=== PATIENT | female | born 1950 | race Caucasian/White ===

== ENCOUNTER 2017-11-13 09:38 | Emergency (ER) | payer MEDICARE, OTHER, SELFPAY ==
[2017-11-13 09:51] VITALS: BP 107/63; PULSE 61; RESP 16; TEMP 37; O2SAT 100; BMI 30.2
--- NOTE | 2017-11-13 10:20 | DI.US.S_ITS ---
PROCEDURE: US PERIPH VENOUS LOW EXTREM LT INDICATIONS: pain swelling hx of dvt TECHNIQUE: Real-time imaging, as well as color and pulse Doppler interrogation, were performed of the lower extremity deep veins from the inguinal ligament to the popliteal fossa. COMPARISON: None. FINDINGS: The deep veins are normally compressible, and free of intraluminal thrombus. Color and pulse Doppler demonstrate normal phasic intraluminal flow. There is normal augmentation response to distal compression maneuver. IMPRESSION: No evidence of left lower extremity deep vein thrombosis. Dictated by: Rosendo Hilliard M.D. on 11/13/2017 at 10:28 Approved by: Rosendo Hilliard M.D. on 11/13/2017 at 10:28
--- NOTE | 2017-11-13 10:26 | ED.EXTPRO ---
HPI - Extremity Problem General Chief complaint: Extremity Problem,Nontraumatic Stated complaint: PAIN ABOUT LEFT KNEECAP,LEFT LEG LARGER THAN RIGHT Time Seen by Provider: 11/13/17 09:51 Source: patient Mode of arrival: ambulatory Limitations: no limitations History of Present Illness HPI Narrative: Patient is a 67-year-old female who presents with left leg pain. She has a history of a DVT after a foot fracture. The last 3 days she has noticed some pain mostly in her 5 but she has had some numbness in her ankle. The numbness in her ankles what she had before. Previously her calf was swollen twice as large it is not as big now. She has no erythema no fevers no chest pain no shortness of breath. She has not been traveling or immobile, she is fairly active. MD Complaint: extremity pain Related Data Home Medications Medication Instructions Recorded Confirmed albuterol sulfate [ProAir HFA] 1 puff INHALATION PRN PRN 11/13/17 11/13/17 celecoxib 1 cap PO BID 11/13/17 11/13/17 escitalopram oxalate 20 mg PO DAILY 11/13/17 11/13/17 olmesartan 10 mg PO BID 11/13/17 11/13/17 omeprazole 40 mg PO DAILY 11/13/17 11/13/17 oxycodone 1 tab PO QID 11/13/17 11/13/17 pitavastatin calcium [Livalo] 4 mg PO DAILY 11/13/17 11/13/17 promethazine 25 mg PO AC 11/13/17 11/13/17 tizanidine 1 cap PO DIRECTED 11/13/17 11/13/17 trazodone 2 tab PO BEDTIME 11/13/17 11/13/17 Allergies Allergy/AdvReac Type Severity Reaction Status Date / Time iodine Allergy Verified 11/13/17 10:34 Penicillins Allergy Verified 11/13/17 10:34 Sulfa (Sulfonamide Allergy Verified 11/13/17 10:34 Antibiotics) Review of Systems Review of Systems All systems reviewed & are unremarkable except as noted in HPI and below Constitutional Denies chills, Denies fever(s), Denies lethargy and Denies weakness Cardiovascular Denies chest pain, Denies irregular heart rhythm, Denies lightheadedness, Denies palpitations and Denies orthopnea Gastrointestinal Gastrointestinal: Denies abdominal pain, Denies change in bowel habits, Denies diarrhea, Denies nausea and Denies vomiting Musculoskeletal Denies abnormal gait, Denies deformity, Denies arthralgias and Reports numbness (Left ankle intermittent) Integumentary/Breasts Denies pruritus, Denies erythema, Denies rash and Denies wounds Neurologic Denies abnormal gait, Reports numbness (Left ankle intermittent) and Denies weakness Endocrine Denies palpitations PFSH Medical History DVT (deep venous thrombosis) (Acute) Social History Smoking Status: Never smoker Exam Initial Vital Signs Initial Vital Signs: Vital Signs Temperature 98.6 F 11/13/17 09:51 Pulse Rate 61 11/13/17 09:51 Respiratory Rate 16 11/13/17 09:51 Blood Pressure 107/63 11/13/17 09:51 Pulse Oximetry 100 11/13/17 09:51 Const General: cooperative and well developed Nutritional Appearance: well nourished Orientation: alert, awake, oriented x3 and not confused Resp Effort & Inspection: normal respiratory effort, able to speak in complete sentences, no respiratory distress and no use of accessory muscles Auscultation: clear to auscultation bilaterally, no rales, no rhonchi and no wheezes Cardio Rate: regular rate Rhythm: regular rhythm Heart Sounds: no click, no gallops, no murmurs and no rubs Pulses: normal peripheral pulses Skin General: no rashes or lesions noted, No jaundice and No petechiae Extrem Right lower extremity: normal to inspection, full ROM and normal capillary refill Left lower extremity: normal to inspection, full ROM and normal capillary refill Course Orders Ordered: ED Orders 11/13/17 10:20 [address] [facility] venous low extrem lt Stat Vital Signs - 8 hr 11/13/17 09:51 11/13/17 11:19 Temperature 98.6 F Pulse Rate 61 63 Respiratory Rate 16 16 Blood Pressure 107/63 Blood Pressure [Left Arm] 124/63 H Pulse Oximetry 100 100 MDM - Extremity (Nontraumatic) Imaging Data Venous US: Radiologist's impression: PROCEDURE: US PERIP VENOUS LOW EXTREM LT INDICATIONS: pain swelling hx of dvt TECHNIQUE: Real-time imaging, as well as color and pulse Doppler interrogation, were performed of the lower extremity deep veins from the inguinal ligament to the popliteal fossa. COMPARISON: None. FINDINGS: The deep veins are normally compressible, and free of intraluminal thrombus. Color and pulse Doppler demonstrate normal phasic intraluminal flow. There is normal augmentation response to distal compression maneuver. IMPRESSION: No evidence of left lower extremity deep vein thrombosis. Dictated by: Rosendo Hilliard M.D. on 11/13/2017 at 10:28 Discharge Plan Departure Patient Disposition: Home, Self-Care Clinical Impression: Left leg pain Instructions: DI for Leg Pain Activity Restrictions/Additional Instructions: *You have been diagnosed with left leg pain *What to do: No blood clot at this time *Continue to take medications as directed *Follow up with your primary care provider in 2-3 days *Return to ER if you should have increased pain, increased or any new, worsening or concerning symptoms Prescriptions: No Action celecoxib 200 mg capsule 1 cap PO BID RF: 0 omeprazole 40 mg capsule,delayed release(DR/EC) 40 mg PO DAILY RF: 0 promethazine 25 mg tablet 25 mg PO AC RF: 0 albuterol sulfate [ProAir HFA] 90 mcg/actuation HFA aerosol inhaler 1 puff Inhalation PRN PRN (Reason: Shortness Of Breath) RF: 0 oxycodone 5 mg tablet 1 tab PO QID RF: 0 escitalopram oxalate 20 mg tablet 20 mg PO DAILY RF: 0 tizanidine 2 mg capsule 1 cap PO DIRECTED RF: 0 pitavastatin calcium [Livalo] 4 mg tablet 4 mg PO DAILY RF: 0 trazodone 50 mg tablet 2 tab PO BEDTIME RF: 0 olmesartan 5 mg tablet 10 mg PO BID RF: 0 Referrals: Cass Lebron [Primary Care Provider] -
[2017-11-13 11:19] VITALS: BP 124/63; PULSE 63; RESP 16; O2SAT 100
== END 2017-11-13 11:40 | disposition home or self-care (01) ==
PROVIDERS: Emergency Provider Emergency Medicine; PCP Internal Medicine
DX: M79.605 Pain in left leg (principal)
CPT/HCPCS: 93971; 99282; 99284

== ENCOUNTER 2018-06-18 17:08 | Emergency (ER) | payer MEDICARE, OTHER, SELFPAY ==
[2018-06-18] VITALS (10 sets, daily range): BP systolic 90–120; BP diastolic 7–83; PULSE 51–87; RESP 10–21; TEMP 36.4; O2SAT 86–100; BMI 25.2
--- NOTE | 2018-06-18 17:26 | DI.RAD.S_ITS ---
PROCEDURE: XR KNEE RT 1TO2V INDICATIONS: fall TECHNIQUE: 2 view(s) of the knee acquired. COMPARISON: None. FINDINGS: Bones: Patient is status post knee joint arthroplasty. There is a markedly angulated and moderately displaced comminuted fracture of the distal femur just superior to the arthroplasty hardware. Soft tissues: Overlying postoperative changes are noted. IMPRESSION: Periprosthetic distal femoral fracture. Dictated by: Peter Flores M.D. on 06/18/2018 at 18:43 Approved by: Peter Flores M.D. on 06/18/2018 at 18:44
[2018-06-18 17:49] LABS: Add Manual Diff / Slide Review NO; Basophils Absolute Auto 0 /uL (0-100); Basophils Percent Auto 0.7 % (0-2); Eosinophils Absolute Auto 200 /uL (0-450); Eosinophils Percent Auto 5.4 % (2-4); Hematocrit 31.9 % (36-46); Hemoglobin 10.5 g/dL (12.0-16.0); Lymphocytes Absolute Auto 1200 /uL (1100-4500); Lymphocytes Percent Auto 26.2 % (25-40); Mean Corpuscular HGB Conc 32.9 % (30-36); Mean Corpuscular Hemoglobin 30.5 PG (26-34); Mean Corpuscular Volume 92.7 fL (80-100); Monocytes Absolute Auto 300 /uL (0-900); Monocytes Percent Auto 6.8 % (3-14); Neutrophils Absolute Auto 2800 /uL (1500-7000); Neutrophils Percent Auto 60.9 % (50-75); Platelet Count 145 X10^3/uL (150-400); Red Blood Cell Count 3.44 X10^6/uL (4.0-5.2); Red Cell Distribution Width 13.5 % (11.6-14.8); White Blood Cell Count 4.6 X10^3/uL (4.5-11.0)
[2018-06-18 18:02] LABS: Alanine Aminotransferase 48 IU/L (9-52); Albumin 3.8 g/dL (3.5-5.0); Albumin Globulin Ratio 1.7 (1.0-2.8); Alkaline Phosphatase 69 U/L (38-126); Aspartate Aminotransferase 47 IU/L (14-36); BUN Creatinine Ratio 18.7 (6-22); Bilirubin Total 0.4 mg/dL (0.2-1.3); Blood Urea Nitrogen 28 mg/dL (7-17); Calcium 9.2 mg/dL (8.4-10.2); Carbon Dioxide 30 mmol/L (22-32); Chloride 101 mmol/L (98-107); Creatine Kinase 66 U/L (30-135); Estimated Glomerular Filt Rate 34.6 mL/min (>60); Globulin 2.3 g/dL (1.7-4.1); Glucose 71 mg/dL (80-110); HEMOLYSIS < 15 (0-50); Potassium 4.2 mmol/L (3.4-5.1); Sodium 138 mmol/L (137-145); Total Protein 6.1 g/dL (6.3-8.2)
[2018-06-18] MEDS: HYDROMORPHONE 1 MG INJ IV ×6 (18:09→23:46)
[2018-06-18] MEDS: ONDANSETRON 4 MG/2 ML INJ IV (18:10)
[2018-06-18] MEDS: SODIUM CHLORIDE 0.9% 1,000 ML 1000 ML IV ×2 (18:10→20:08)
[2018-06-18 18:14] LABS: Troponin I < 0.012 ng/mL (0.01-0.034)
--- NOTE | 2018-06-18 18:41 | ED.SYNCOPE ---
HPI - Syncope General Chief Complaint: Syncope Stated Complaint: hypoglycemia w/ fall and R knee pain Time Seen by Provider: 06/18/18 18:13 Source: patient and EMS Mode of arrival: EMS Limitations: no limitations History of Present Illness HPI narrative: 68-year-old female, nonsmoker with history of frequent episodes of hypoglycemia which has been followed by her PCP. She became lightheaded and likely had a syncopal episode today and fell, injuring her right knee. She attempted to ambulate again and had another syncopal episode, presumably secondary to the pain associated with her fracture. She was able to get herself to a phone and activate EMS. She denies any head, neck or back pain as a consequence of her episode. She denies any chest pain or shortness of breath. She states that her blood glucose was about 50. She suffered an obvious right lower extremity injury with deformity but denies numbness, weakness or tingling. She had a right total knee in [place] in 2002 at [facility] does not have local care. She states she is normally slightly anemic and as stated frequently has low blood sugars. She denies any recent illness such as nausea, vomiting or diarrhea. She denies any blood thinners. She has had no recent medication changes. MD complaint: loss of consciousness and felt faint Onset (ago): hour(s) Prodromal symptoms: lightheaded Witnessed: no Current symptoms: other Treatments prior to arrival: IV fluids and splinting Related Data Home Medications Medication Instructions Recorded Confirmed albuterol sulfate [ProAir HFA] 1 puff INHALATION PRN PRN 11/13/17 06/19/18 celecoxib 1 cap PO BID 11/13/17 06/19/18 escitalopram oxalate 20 mg PO DAILY 11/13/17 06/19/18 olmesartan 10 mg PO BID 11/13/17 06/19/18 omeprazole 40 mg PO DAILY 11/13/17 06/19/18 oxycodone 1 tab PO QID 11/13/17 06/19/18 pitavastatin calcium [Livalo] 4 mg PO DAILY 11/13/17 06/19/18 promethazine 25 mg PO AC 11/13/17 06/19/18 tizanidine 1 cap PO QID 11/13/17 06/19/18 metoprolol succinate 0.5 tab PO DAILY 06/19/18 06/19/18 Allergies Allergy/AdvReac Type Severity Reaction Status Date / Time iodine Allergy Verified 06/18/18 20:43 Penicillins Allergy Verified 06/18/18 20:43 Sulfa (Sulfonamide Allergy Verified 06/18/18 20:43 Antibiotics) Review of Systems Constitutional Denies chills, Denies fever(s), Denies lethargy and Denies weakness Eyes Denies change in vision, Denies eye discharge, Denies irritation and Denies loss of vision ENT Ears, Nose, Mouth, and Throat: Denies change in voice, Denies neck pain and Denies sore throat Cardiovascular Denies chest pain, Denies irregular heart rhythm, Denies lightheadedness, Denies palpitations, Denies dyspnea, Denies dyspnea on exertion and Denies orthopnea Respiratory Denies cough, Denies dyspnea, Denies dyspnea on exertion and Denies wheezing Gastrointestinal Gastrointestinal: Denies abdominal pain, Denies change in bowel habits, Denies diarrhea, Denies nausea and Denies vomiting Genitourinary Denies hematuria, Denies flank pain, Denies urinary incontinence and Denies urinary urgency Musculoskeletal Reports joint swelling, Reports limited range of motion and Denies neck pain Integumentary/Breasts Denies pruritus, Denies erythema, Denies rash and Denies wounds Neurologic Denies confusion, Denies loss of vision and Denies weakness Psychiatric Denies anxiety, Denies confusion, Denies depression, Denies homicidal ideation and Denies suicidal ideation Endocrine Denies palpitations Hematologic/Lymphatic Denies easy bruising Allergic/Immunologic Denies wheezing PFSH Medical History Anemia (Acute) HTN (hypertension) (Acute) Hyperlipidemia (Acute) Hypoglycemia (Acute) DVT (deep venous thrombosis) (Acute) Social History Smoking Status: Never smoker Social History Smoking Status: Never smoker Exam Narrative Exam Narrative: GENERAL: 68-year-old female, obviously in pain but pleasant. GCS 15 HEAD: Atraumatic. Normocephalic. No temporal or scalp tenderness. EYES: Pupils equal round and reactive. Extraocular motions intact. No scleral icterus. No injection or drainage. ENT: Nose without bleeding, purulent drainage or septal hematoma. Throat without erythema, tonsillar hypertrophy or exudate. Uvula midline. Airway patent. NECK: Trachea midline. No JVD or lymphadenopathy. Supple, nontender, no meningeal signs. CARDIOVASCULAR: Regular rate and rhythm without murmurs, gallops, or rubs. RESPIRATORY: Clear to auscultation. Breath sounds equal bilaterally. No wheezes, rales, or rhonchi. GASTROINTESTINAL: Abdomen soft, non-tender, nondistended. No hepato-splenomegaly, or palpable masses. No guarding. EXTREMITIES: Obvious deformity of the right knee with swelling and pain to palpation. Compartments are soft. Dorsalis pedis is palpable, cap refill less than 2 sec, foot warm sensation intact BACK: Nontender without deformity or crepitance. No flank tenderness. NEURO: AOx3. SKIN: No rash or erythema. Initial Vital Signs Initial Vital Signs: Vital Signs Temperature 97.6 F 06/18/18 17:17 Pulse Rate 54 L 06/18/18 17:17 Respiratory Rate 10 L 06/18/18 17:17 Blood Pressure 91/71 06/18/18 17:17 Pulse Oximetry 97 06/18/18 17:17 Procedures Orthopedic Fracture Reduction Fracture #1: Time Out Performed: Yes Side: right Fracture Reduction Location: femur Analgesia: procedural sedation Technique: direct manipulation and traction/counter-traction Post-reduction neuro exam: intact Post-reduction vascular exam: intact Splint Applied: Yes Patient Tolerated Procedure: Well Orthopedic Splinting/Casting Injury #1: Side: right Lower Extremity Injury Location: knee Lower Extremity Immobilizer: posterior splint Procedural Sedation Patient Age: Patient is 5yrs or older Indication: fracture/dislocation reduction Preparation: cardiac care nurse applied, pulse oximeter, capnometry used and supplemental O2 applied IV Propofol dose (mg): 80 ED Sedation Level: Moderate (Concious) Patient Tolerated Procedure: Well Complications: none Course Orders Ordered: ED Orders 06/18/18 17:26 XR knee RT 1to2V Stat 06/18/18 17:38 Complete Blood Count AUTO DIFF Stat Comprehensive Metabolic Panel Stat Troponin & CK Cardiac Panel Stat 06/18/18 20:15 Hemoglobin and Hematocrit Stat Type and Screen Stat 06/19/18 01:00 Hemoglobin and Hematocrit Stat Hydromorphone HCl (Dilaudid) 1 mg IV Q1HR PRN PRN Reason: Pain, Severe (7-10) Last Admin: 06/19/18 01:35 Dose: 1 mg Admin: 06/18/18 23:46 Dose: 1 mg Admin: 06/18/18 22:28 Dose: 1 mg Admin: 06/18/18 21:07 Dose: 1 mg Sodium Chloride (Normal Saline 0.9%) 1,000 mls @ 150 mls/hr IV BOLUS ONE Stop: 06/19/18 02:09 Last Admin: 06/18/18 23:47 Dose: 150 mls/hr Discontinued Medications Albuterol/Ipratropium (Duoneb) 3 ml INH NOW ONE Stop: 06/18/18 21:58 Last Admin: 06/18/18 22:02 Dose: 3 ml Hydromorphone HCl (Dilaudid) 1 mg IV NOW ONE Stop: 06/18/18 17:55 Last Admin: 06/18/18 18:09 Dose: 1 mg Hydromorphone HCl (Dilaudid) 1 mg IV NOW ONE Stop: 06/18/18 18:42 Last Admin: 06/18/18 18:43 Dose: 1 mg Hydromorphone HCl (Dilaudid) 1 mg IV NOW ONE Stop: 06/18/18 19:30 Last Admin: 06/18/18 19:36 Dose: 1 mg Hydromorphone HCl (Dilaudid) 1 mg IV Q1HR GRISELDA Last Admin: 06/18/18 22:15 Dose: Sodium Chloride (Normal Saline 0.9%) 1,000 mls @ 1,000 mls/hr IV BOLUS ONE Stop: 06/18/18 18:24 Last Infusion: 06/18/18 20:06 Dose: 0 mls/hr Admin: 06/18/18 18:10 Dose: 1,000 mls/hr Sodium Chloride (Normal Saline 0.9%) 1,000 mls @ 1,000 mls/hr IV BOLUS ONE Stop: 06/18/18 21:06 Last Infusion: 06/18/18 20:48 Dose: 0 mls/hr Admin: 06/18/18 20:08 Dose: 1,000 mls/hr Ondansetron HCl (Zofran) 4 mg IV NOW ONE Stop: 06/18/18 17:55 Last Admin: 06/18/18 18:10 Dose: 4 mg Reevaluation(s) Reevaluation #1: continued pain. NV in tact. compartments remain soft Consultations Consultation #1: Called to local orthopedics, they state given combination of fracture around prosthesis the level complexity exceeds the capability of this facility Consultation #2: I've now spoken with Orthopedics at [facility] whom recommend splinting with a posterior long-leg splint and ample padding at the malleoli. They request we get as close to straight as possible will allow a mild amount of flexion if needed. Consultation #3: Trauma surgeon at our review recommends repeat H&H before sending patient by ambulance. This has been acquired and there is a very minimal foreign exchange student coordinator the past 5 hr, from 29-28.4. Vital Signs - 8 hr 06/18/18 18:00 06/18/18 19:08 06/18/18 19:35 Pulse Rate 76 61 60 Respiratory Rate 13 15 13 Blood Pressure [Right Arm] 120/79 93/56 L 104/83 Pulse Oximetry 97 98 100 06/18/18 20:49 06/18/18 21:57 06/18/18 22:02 Pulse Rate 83 76 77 Respiratory Rate 18 15 20 Blood Pressure [Right Arm] 93/58 L 99/55 L Pulse Oximetry 86 L 98 93 06/18/18 22:29 06/18/18 23:40 06/19/18 00:30 Pulse Rate 87 81 80 Respiratory Rate 17 21 14 Blood Pressure [Right Arm] 94/7 L 96/53 L 96/51 L Pulse Oximetry 98 100 100 06/19/18 01:05 06/19/18 01:21 06/19/18 01:26 Pulse Rate 88 78 68 Respiratory Rate 17 18 16 Blood Pressure [Right Arm] 99/58 L 130/61 106/85 Pulse Oximetry 94 100 100 06/19/18 01:29 06/19/18 01:37 Pulse Rate 77 78 Respiratory Rate 16 18 Blood Pressure [Right Arm] 102/58 L Pulse Oximetry 100 MDM - Syncope Lab Data Result diagrams: 06/19/18 01:00 06/18/18 17:38 Lab Results 06/18/18 06/18/18 06/18/18 Range/Units 17:38 17:38 20:15 WBC 4.6 (4.5-11.0) X10^3/uL RBC 3.44 L (4.0-5.2) X10^6/uL Hgb 10.5 L 9.7 L (12.0-16.0) g/dL Hct 31.9 L 29.0 L (36-46) % MCV 92.7 (80-100) fL MCH 30.5 (26-34) PG MCHC 32.9 (30-36) % RDW 13.5 (11.6-14.8) % Plt Count 145 L (150-400) X10^3/uL Neut % (Auto) 60.9 (50-75) % Lymph % (Auto) 26.2 (25-40) % Rowan % (Auto) 6.8 (3-14) % Eos % (Auto) 5.4 H (2-4) % Baso % (Auto) 0.7 (0-2) % Neut # (Auto) 2800 (0199-0418) /uL Lymph # (Auto) 1200 (5892-9859) /uL Rowan # (Auto) 300 (0-900) /uL Eos # (Auto) 200 (0-450) /uL Baso # (Auto) 0 (0-100) /uL Sodium 138 (137-145) mmol/L Potassium 4.2 (3.4-5.1) mmol/L Chloride 101 (98-107) mmol/L Carbon Dioxide 30 (22-32) mmol/L BUN 28 H (7-17) mg/dL Creatinine 1.50 H (0.52-1.04) mg/dL Estimated GFR 34.6 L (>60) mL/min BUN/Creatinine Ratio 18.7 (6-22) Glucose 71 L (80-110) mg/dL Calcium 9.2 (8.4-10.2) mg/dL Total Bilirubin 0.4 (0.2-1.3) mg/dL AST 47 H (14-36) IU/L ALT 48 (9-52) IU/L Alkaline Phosphatase 69 (38-126) U/L Total Creatine Kinase 66 (30-135) U/L CK-MB (CK-2) TNP CK-MB (CK-2) Rel Index TNP Troponin I < 0.012 (0.01-0.034) ng/mL Total Protein 6.1 L (6.3-8.2) g/dL Albumin 3.8 (3.5-5.0) g/dL Globulin 2.3 (1.7-4.1) g/dL Albumin/Globulin Ratio 1.7 (1.0-2.8) Blood Type Antibody Screen 06/18/18 06/19/18 Range/Units 20:15 01:00 WBC (4.5-11.0) X10^3/uL RBC (4.0-5.2) X10^6/uL Hgb 9.5 L (12.0-16.0) g/dL Hct 28.4 L (36-46) % MCV (80-100) fL MCH (26-34) PG MCHC (30-36) % RDW (11.6-14.8) % Plt Count (150-400) X10^3/uL Neut % (Auto) (50-75) % Lymph % (Auto) (25-40) % Rowan % (Auto) (3-14) % Eos % (Auto) (2-4) % Baso % (Auto) (0-2) % Neut # (Auto) (4251-6106) /uL Lymph # (Auto) (5122-1452) /uL Rowan # (Auto) (0-900) /uL Eos # (Auto) (0-450) /uL Baso # (Auto) (0-100) /uL Sodium (137-145) mmol/L Potassium (3.4-5.1) mmol/L Chloride (98-107) mmol/L Carbon Dioxide (22-32) mmol/L BUN (7-17) mg/dL Creatinine (0.52-1.04) mg/dL Estimated GFR (>60) mL/min BUN/Creatinine Ratio (6-22) Glucose (80-110) mg/dL Calcium (8.4-10.2) mg/dL Total Bilirubin (0.2-1.3) mg/dL AST (14-36) IU/L ALT (9-52) IU/L Alkaline Phosphatase (38-126) U/L Total Creatine Kinase (30-135) U/L CK-MB (CK-2) CK-MB (CK-2) Rel Index Troponin I (0.01-0.034) ng/mL Total Protein (6.3-8.2) g/dL Albumin (3.5-5.0) g/dL Globulin (1.7-4.1) g/dL Albumin/Globulin Ratio (1.0-2.8) Blood Type A Positive Antibody Screen Negative Point of Care Testing Test Results Not applicable Glucose POC 119 Urine Dip Bedside Urine Glucose Negative Bedside Urine Bilirubin - Negative Bedside Urine Ketone - Negative Urine Specific Dawson 1.015 Bedside Urine Occult Blood - Negative Bedside Urine pH 6.0 Bedside Urine Protein - Negative Bedside Urine Urobilinogen - Negative Bedside Urine Nitrite - Negative Bedside Urine Leukocytes - Negative Esterase Imaging Data Knee Xray: Radiologist's impression: [address] [address] XRay Report Signed Patient: RITO ROSA [facility]#: [id number] : 2Acct:[id number] Age/Sex: 68 / FDate of Service: 06/18/18 Loc: ED Accession Number: [id number] Procedure: XR knee RT 1to2V Ordering Provider: Sharda Kennedy MD PROCEDURE: XR KNEE RT 1TO2V INDICATIONS: fall TECHNIQUE: 2 view(s) of the knee acquired. COMPARISON: None. FINDINGS: Bones: Patient is status post knee joint arthroplasty. There is a markedly angulated and moderately displaced comminuted fracture of the distal femur just superior to the arthroplasty hardware. Soft tissues: Overlying postoperative changes are noted. IMPRESSION: Periprosthetic distal femoral fracture. Dictated by: Peter Flores M.D. on 06/18/2018 at 18:43 Approved by: Peter Flores M.D. on 06/18/2018 at 18:44 [facility] Narrative Medical decision making narrative: Patient has a complex fracture involving a prosthesis and exceeds the level of care we can provide at this hospital. She remains stable, neurovascularly intact with soft compartments. She has been splinted and pain is appropriately controlled. It has been a rather lengthy visit given an exceptionally busy evening both in our department, and our review resulting in some delays in communications and call backs. We appreciate our review further help in caring for Ms Rosa Discharge Plan Departure Patient Disposition: [facility] Clinical Impression: Femoral distal fracture, Anemia, Hypoglycemia Prescriptions: No Action celecoxib 200 mg capsule 1 cap PO BID RF: 0 omeprazole 40 mg capsule,delayed release(DR/EC) 40 mg PO DAILY RF: 0 promethazine 25 mg tablet 25 mg PO AC RF: 0 albuterol sulfate [ProAir HFA] 90 mcg/actuation HFA aerosol inhaler 1 puff Inhalation PRN PRN (Reason: Shortness Of Breath) RF: 0 oxycodone 5 mg tablet 1 tab PO QID RF: 0 escitalopram oxalate 20 mg tablet 20 mg PO DAILY RF: 0 tizanidine 2 mg capsule 1 cap PO QID RF: 0 pitavastatin calcium [Livalo] 4 mg tablet 4 mg PO DAILY RF: 0 olmesartan 5 mg tablet 10 mg PO BID RF: 0 metoprolol succinate 25 mg tablet extended release 24 hr 0.5 tab PO DAILY RF: 0
[2018-06-18 20:26] LABS: Hemoglobin 9.7 g/dL (12.0-16.0)
[2018-06-18] MEDS: ALBUTEROL/IPRATROPIUM 3 ML AMPUL INH (22:02)
[2018-06-18] MEDS: SODIUM CHLORIDE 0.9% 1,000 ML 150 ML IV (23:47)
[2018-06-19] VITALS (7 sets, daily range): BP systolic 96–130; BP diastolic 51–85; PULSE 68–88; RESP 14–20; O2SAT 94–100
[2018-06-19 01:06] LABS: Hematocrit 28.4 % (36-46); Hemoglobin 9.5 g/dL (12.0-16.0)
[2018-06-19] MEDS: PROPOFOL 200 MG/20 ML VIAL 80 MG IV (01:16)
[2018-06-19] MEDS: HYDROMORPHONE 1 MG INJ IV (01:35)
== END 2018-06-19 01:50 | disposition short-term general hospital (02) ==
PROVIDERS: Emergency Medicine; Emergency Provider Emergency Medicine; PCP Internal Medicine
DX: S72.401A Unspecified fracture of lower end of right femur, initial encounter for closed fracture (principal); D64.9 Anemia, unspecified; E16.2 Hypoglycemia, unspecified; W18.30XA Fall on same level, unspecified, initial encounter
CPT/HCPCS: 27232; 27510; 36415; 51701; 73560; 80053; 81003; 82550; 82962; 84484; 85014; 85018; 85025; 86850; 86900; 86901; 93005; 94640; 94770; 96361; 96374; 96375; 96376; 99152; 99285; J1170; J2405; J2704

== ENCOUNTER 2018-07-31 16:29 | Emergency (ER) | payer MEDICARE, OTHER, SELFPAY ==
[2018-07-31 16:38] VITALS: BP 103/71; PULSE 72; RESP 19; TEMP 36.7; O2SAT 100; BMI 23.8
--- NOTE | 2018-07-31 17:38 | DI.US.S_ITS ---
PROCEDURE: US PERIPH VENOUS LOW EXTREM RT INDICATIONS: RIGHT LEG EDEMA; FEMUR FRACTURE 06-18-2018 TECHNIQUE: Real-time imaging, as well as color and pulse Doppler interrogation, were performed of the lower extremity deep veins from the inguinal ligament to the popliteal fossa. COMPARISON: None. FINDINGS: The common femoral, femoral and popliteal veins are normally compressible, and free of intraluminal thrombus. Color and pulse Doppler demonstrate normal phasic intraluminal flow. There is normal augmentation response to distal compression maneuver. There is a 1.9 x 1.0 x 2.0 cm complex fluid collection in the right calf which does not have internal vascularity may represent a hematoma. IMPRESSION: No evidence of deep vein thrombosis involving the right lower extremity. Dictated by: Tabitha Martínez MD, PhD on 07/31/2018 at 18:27 Approved by: Tabitha Martínez MD, PhD on 07/31/2018 at 18:28
--- NOTE | 2018-08-01 01:45 | ED.EXTPRO ---
HPI - Extremity Problem General Chief complaint: Extremity Problem,Nontraumatic Stated complaint: Thinks she has a blood clot in her right leg Time Seen by Provider: 07/31/18 17:42 History of Present Illness HPI Narrative: I did not see or evaluate patient. VDC. doppler is negative Related Data Home Medications Medication Instructions Recorded Confirmed albuterol sulfate [ProAir HFA] 1 puff INHALATION PRN PRN 11/13/17 06/19/18 celecoxib 1 cap PO BID 11/13/17 06/19/18 escitalopram oxalate 20 mg PO DAILY 11/13/17 06/19/18 olmesartan 10 mg PO BID 11/13/17 06/19/18 omeprazole 40 mg PO DAILY 11/13/17 06/19/18 oxycodone 1 tab PO QID 11/13/17 06/19/18 pitavastatin calcium [Livalo] 4 mg PO DAILY 11/13/17 06/19/18 promethazine 25 mg PO AC 11/13/17 06/19/18 tizanidine 1 cap PO QID 11/13/17 06/19/18 metoprolol succinate 0.5 tab PO DAILY 06/19/18 06/19/18 Allergies Allergy/AdvReac Type Severity Reaction Status Date / Time duloxetine [From Cymbalta] Allergy Numbness Verified 07/31/18 16:45 iodine Allergy Verified 07/31/18 16:44 Penicillins Allergy Verified 07/31/18 16:44 pregabalin [From Lyrica] Allergy Hallucinati Verified 07/31/18 16:45 ng Sulfa (Sulfonamide Allergy Verified 07/31/18 16:44 Antibiotics) PFSH Medical History Anemia (Acute) DVT (deep venous thrombosis) (Acute) HTN (hypertension) (Acute) Hyperlipidemia (Acute) Hypoglycemia (Acute) Social History Smoking Status: Never smoker Social History Smoking Status: Never smoker Exam Initial Vital Signs Initial Vital Signs: Vital Signs Temperature 98.0 F 07/31/18 16:38 Pulse Rate 72 07/31/18 16:38 Respiratory Rate 19 07/31/18 16:38 Blood Pressure 103/71 07/31/18 16:38 Pulse Oximetry 100 07/31/18 16:38 Course Orders Ordered: ED Orders 07/31/18 17:38 periph venous low extrem rt Stat Discharge Plan Departure Patient Disposition: Left Without Being Seen Clinical Impression: Patient left without being seen Discharge Date/Time: 07/31/18 20:45
== END 2018-07-31 20:45 | disposition left against medical advice (07) ==
PROVIDERS: Emergency Provider Emergency Medicine; PCP Internal Medicine
DX: R60.9 Edema, unspecified (principal)
CPT/HCPCS: 93971; 99281

== ENCOUNTER 2019-04-03 08:56 | Inpatient (IN) | payer MEDICARE, OTHER, SELFPAY ==
[2019-04-03] VITALS (8 sets, daily range): BP systolic 93–149; BP diastolic 56–74; PULSE 68–96; RESP 17–18; TEMP 37.8–38.7; O2SAT 93–100; BMI 23.2; BMI 23.9
[2019-04-03 10:00] LABS: Add Manual Diff / Slide Review NO; Basophils Absolute Auto 0 /uL (0-100); Basophils Percent Auto 0.3 % (0-2); Eosinophils Absolute Auto 0 /uL (0-450); Eosinophils Percent Auto 0.1 % (2-4); Hematocrit 34.1 % (36-46); Hemoglobin 11.4 g/dL (12.0-16.0); Lymphocytes Absolute Auto 200 /uL (1100-4500); Lymphocytes Percent Auto 4.2 % (25-40); Mean Corpuscular HGB Conc 33.4 % (30-36); Mean Corpuscular Hemoglobin 31.1 PG (26-34); Mean Corpuscular Volume 93.1 fL (80-100); Monocytes Absolute Auto 500 /uL (0-900); Neutrophils Absolute Auto 4900 /uL (1500-7000); Neutrophils Percent Auto 86.4 % (50-75); Platelet Count 117 X10^3/uL (150-400); Red Blood Cell Count 3.67 X10^6/uL (4.0-5.2); Red Cell Distribution Width 13.6 % (11.6-14.8); White Blood Cell Count 5.6 X10^3/uL (4.5-11.0)
[2019-04-03] MEDS: SODIUM CHLORIDE 0.9% 576.06 ML IV (10:05)
[2019-04-03 10:12] LABS: Alanine Aminotransferase 332 IU/L (<35); Albumin 3.9 g/dL (3.5-5.0); Albumin Globulin Ratio 1.5 (1.0-2.8); Alkaline Phosphatase 291 U/L (38-126); Aspartate Aminotransferase 154 IU/L (14-36); BUN Creatinine Ratio 31.4 (6-22); Bilirubin Total 0.9 mg/dL (0.2-1.3); Blood Urea Nitrogen 44 mg/dL (7-17); Calcium 9.4 mg/dL (8.4-10.2); Carbon Dioxide 28 mmol/L (22-32); Chloride 98 mmol/L (98-107); Estimated Glomerular Filt Rate 37.5 mL/min (>60); Globulin 2.6 g/dL (1.7-4.1); Glucose 122 mg/dL (80-110); HEMOLYSIS < 15 (0-50); Potassium 3.9 mmol/L (3.4-5.1); Sodium 135 mmol/L (137-145); Total Protein 6.5 g/dL (6.3-8.2)
--- NOTE | 2019-04-03 10:29 | ED_ITS ---
HPI - Female Genitourinary General Chief complaint: Urogenital-Female Stated complaint: states kidney infection, blood sugar concerns,afib Time Seen by Provider: 04/03/19 09:00 Source: patient Mode of arrival: Ambulatory Limitations: no limitations History of Present Illness HPI Narrative: Nonsmoker with extensive medical history including prior episodes of pyelonephritis, chronic kidney disease stage 3 as well as cardiac issues including ventricular dysrhythmia as and loop recorder presents with a few days of dysuria, frequency and urgency as well as bilateral flank pain and foul- smelling urine. She has had fever and shaking chills and has become profoundly weak with nausea but no vomiting. She denies any change in bowel habits. MD Complaint: dysuria and UTI Onset (ago): day(s) Female Urogenital Radiation: L Flank and R Flank Severity: moderate Quality: Aching Duration: constant Relieving factors: none Exacerbating factors: movement Urinary symptoms: Difficulty Urinating and Dysuria Patient : No Associated symptoms: nausea/vomiting, fever/chills and loss of appetite Related Data Home Medications Medication Instructions Recorded Confirmed albuterol sulfate [ProAir HFA] 1 puff INHALATION PRN PRN 11/13/17 06/19/18 celecoxib 1 cap PO BID 11/13/17 06/19/18 escitalopram oxalate 20 mg PO DAILY 11/13/17 06/19/18 olmesartan 10 mg PO BID 11/13/17 06/19/18 omeprazole 40 mg PO DAILY 11/13/17 06/19/18 oxycodone 1 tab PO QID 11/13/17 06/19/18 pitavastatin calcium [Livalo] 4 mg PO DAILY 11/13/17 06/19/18 promethazine 25 mg PO AC 11/13/17 06/19/18 tizanidine 1 cap PO QID 11/13/17 06/19/18 metoprolol succinate 0.5 tab PO DAILY 06/19/18 06/19/18 Allergies Allergy/AdvReac Type Severity Reaction Status Date / Time duloxetine [From Cymbalta] Allergy Numbness Verified 07/31/18 16:45 iodine Allergy Verified 07/31/18 16:44 Penicillins Allergy Verified 07/31/18 16:44 pregabalin [From Lyrica] Allergy Hallucinati Verified 03/16/19 16:45 ng Sulfa (Sulfonamide Allergy Verified 07/31/18 16:44 Antibiotics) Review of Systems Constitutional Constitutional: Reports chills, Reports fatigue, Reports fever(s), Denies frequent falls, Denies lethargy and Denies weakness Eyes Eyes: Denies change in vision, Denies eye discharge, Denies irritation and Denies loss of vision ENT Ears, Nose, Mouth, and Throat: Denies change in voice, Denies dizziness, Denies neck pain, Denies sore throat and Denies throat swelling Cardiovascular Cardiovascular: Denies chest pain, Denies irregular heart rhythm, Denies lightheadedness, Denies palpitations, Denies dyspnea, Denies dyspnea on exertion and Denies orthopnea Respiratory Respiratory: Denies cough, Denies dyspnea, Denies dyspnea on exertion and Denies wheezing Gastrointestinal Gastrointestinal: Denies abdominal pain, Denies change in bowel habits, Denies diarrhea, Denies nausea and Denies vomiting Genitourinary Genitourinary: Denies hematuria, Reports dysuria, Reports flank pain, Denies urinary incontinence and Reports urinary urgency Musculoskeletal Musculoskeletal: Denies back pain, Denies muscle weakness, Denies neck pain, Denies numbness and Denies tingling Integumentary/Breasts Skin/Breast: Denies pruritus, Denies erythema, Denies rash and Denies wounds Neurologic Neurologic: Denies behavioral changes, Denies confusion, Denies dizziness, Denies frequent falls, Denies loss of vision, Denies numbness, Denies tingling and Denies weakness Psychiatric Psychiatric: Denies anxiety, Denies behavioral changes, Denies confusion, Denies depression, Denies homicidal ideation and Denies suicidal ideation Endocrine Endocrine: Reports fatigue, Denies flushing and Denies palpitations Hematologic/Lymphatic Hematologic/Lymphatic: Denies easy bruising Allergic/Immunologic Allergic/Immunologic: Denies urticaria, Denies throat swelling and Denies wheezing Patient History Medical History (Updated 04/03/19 @ 15:20 by Neena Alamo MD) Anemia (Acute) Asthma (Acute) Chronic kidney disease, stage 3 (Acute) DVT (deep venous thrombosis) (Acute) Gastroesophageal reflux disease (Acute) HTN (hypertension) (Acute) Hyperlipidemia (Acute) Hypoglycemia (Acute) Right femoral fracture (Acute) Ventricular tachycardia (Acute) Surgical History (Updated 04/03/19 @ 15:16 by Neena Alamo MD) H/O hysterectomy for benign disease (Acute) Family History (Updated 04/03/19 @ 15:17 by Neena Alamo MD) Mother Breast cancer Aortic aneurysm Sister Breast cancer Grandmother Diabetes mellitus alcohol intake frequency: other Substance Use Type: does not use Exam Narrative Exam Narrative: GENERAL: [68] year old patient appears stated age. Appears unwell Well-nourished, well-developed patient, in mild distress. HEAD: Atraumatic. Normocephalic. EYES: Pupils equal round and reactive. Extraocular motions intact. No scleral icterus. No injection or drainage. ENT: Nose without bleeding, purulent drainage. Throat without erythema, tonsillar hypertrophy or exudate. Airway patent. NECK: Trachea midline. Non tender CARDIOVASCULAR: Regular rate and rhythm without murmurs, gallops, or rubs. RESPIRATORY: Clear to auscultation. Breath sounds equal bilaterally. No wheezes, rales, or rhonchi. GASTROINTESTINAL: Abdomen soft, non-tender, nondistended. EXTREMITIES: No edema or joint tenderness. BACK: Bilateral CVAT tenderness to palpation NEURO: AOx3. SKIN: No rash or erythema of visible areas Initial Vital Signs Initial Vital Signs: Vital Signs Respiratory Rate 18 04/03/19 09:03 Blood Pressure 93/56 L 04/03/19 09:03 Pulse Oximetry 100 04/03/19 09:03 Course Orders Ordered: ED Orders 04/03/19 10:06 EKG-12 Lead Stat 04/03/19 10:35 US abdomen complete Stat 04/03/19 11:11 Urine Culture Stat Urine Microscopic Stat 04/03/19 12:42 Blood Culture Stat Acetaminophen (Tylenol) 650 mg PO Q6HR PRN PRN Reason: As Needed for Fever/Mild Pain Al Hydrox/Mg Hydrox/Simethicone (Maalox Plus) 30 ml PO Q6HR PRN PRN Reason: Dyspepsia Albuterol (Ventolin Hfa) 1 puff INH RTQ6HR PRN PRN Reason: Shortness Of Breath Bisacodyl (Dulcolax) 10 mg MS DAILY PRN PRN Reason: Constipation Enoxaparin Sodium (Lovenox) 40 mg SUBCUT DAILY [facility] Last Admin: 04/03/19 16:07 Dose: 40 mg Documented by: ASHLEY Escitalopram Oxalate (Lexapro) 20 mg PO DAILY GRISELDA Ceftriaxone Sodium/Dextrose (Rocephin) 2 gm in 50 mls @ 100 mls/hr IV Q24H GRISELDA Last Infusion: 04/03/19 17:20 Dose: 100 mls/hr Documented by: Admin: 04/03/19 16:07 Dose: 100 mls/hr Documented by: ASHLEY Lactated Ringer's (Lactated Ringers) 1,000 mls @ 150 mls/hr IV CONT GRISELDA Last Admin: 04/03/19 16:07 Dose: 150 mls/hr Documented by: ASHLEY Magnesium Hydroxide (Milk Of Magnesia) 30 ml PO DAILY PRN PRN Reason: Constipation Naloxone HCl (Narcan) 0.2 mg IV Q2MIN PRN PRN Reason: Opiate Reversal Ondansetron HCl (Zofran) 4 mg IV Q8HR PRN PRN Reason: Nausea And Vomiting Oxycodone HCl (Percolone) 5 mg PO Q6HR PRN PRN Reason: Pain, Moderate (4-6) Last Admin: 04/03/19 16:43 Dose: 5 mg Documented by: ASHLEY Pantoprazole Sodium (Protonix) 20 mg PO 0600 [facility] Sennosides (Senna) 17.2 mg PO BEDTIME GRISELDA Tramadol HCl (Ultram) 50 mg PO QID PRN PRN Reason: Pain, Moderate (4-6) Last Admin: 04/03/19 16:04 Dose: 50 mg Documented by: ASHLEY Discontinued Medications Acetaminophen (Tylenol) 650 mg PO NOW ONE Stop: 04/03/19 10:30 Last Admin: 04/03/19 10:32 Dose: 650 mg Documented by: MEISENB Sodium Chloride (Normal Saline 0.9%) 1,728.18 mls @ 576.06 mls/hr 30 ml/kg infuse over 3 hr (1728.18 ml) IV NOW ONE Stop: 04/03/19 12:40 Last Admin: 04/03/19 10:05 Dose: 576.06 mls/hr Documented by: ALBERTO Vital Signs Vital signs: Vital Signs - 8 hr 04/03/19 11:33 Pulse Rate 68 Respiratory Rate 18 Blood Pressure [Left Arm] 102/57 L Pulse Oximetry 99 MDM - Female Genitourinary Lab Data Result diagrams: 04/03/19 09:40 04/03/19 09:40 Labs: Lab Results 04/03/19 04/03/19 04/03/19 Range/Units 09:40 09:40 09:40 WBC 5.6 (4.5-11.0) X10^3/uL RBC 3.67 L (4.0-5.2) X10^6/uL Hgb 11.4 L (12.0-16.0) g/dL Hct 34.1 L (36-46) % MCV 93.1 (80-100) fL MCH 31.1 (26-34) PG MCHC 33.4 (30-36) % RDW 13.6 (11.6-14.8) % Plt Count 117 L (150-400) X10^3/uL Neut % (Auto) 86.4 H (50-75) % Lymph % (Auto) 4.2 L (25-40) % [place] % (Auto) 9.0 (3-14) % Eos % (Auto) 0.1 L (2-4) % Baso % (Auto) 0.3 (0-2) % Neut # (Auto) 4900 (7633-8888) /uL Lymph # (Auto) 200 L (0479-6063) /uL [place] # (Auto) 500 (0-900) /uL Eos # (Auto) 0 (0-450) /uL Baso # (Auto) 0 (0-100) /uL Sodium 135 L (137-145) mmol/L Potassium 3.9 (3.4-5.1) mmol/L Chloride 98 (98-107) mmol/L Carbon Dioxide 28 (22-32) mmol/L BUN 44 H (7-17) mg/dL Creatinine 1.40 H (0.52-1.04) mg/dL Estimated GFR 37.5 L (>60) mL/min BUN/Creatinine Ratio 31.4 H (6-22) Glucose 122 H (80-110) mg/dL Lactate (0.7-2.1) mmol/L Calcium 9.4 (8.4-10.2) mg/dL Total Bilirubin 0.9 (0.2-1.3) mg/dL AST 154 H (14-36) IU/L ALT 332 H (<35) IU/L Alkaline Phosphatase 291 H (38-126) U/L Total Protein 6.5 (6.3-8.2) g/dL Albumin 3.9 (3.5-5.0) g/dL Globulin 2.6 (1.7-4.1) g/dL Albumin/Globulin Ratio 1.5 (1.0-2.8) Procalcitonin 15.93 H (<0.5) ng/mL Urine RBC (0-5/HPF) Urine WBC (0-5/HPF) Ur Squamous Epith Cells (0-5/HPF) Amorphous Sediment Urine Bacteria (None) Granular Casts (None) Ur Culture Indicated? 04/03/19 04/03/19 Range/Units 09:40 11:11 WBC (4.5-11.0) X10^3/uL RBC (4.0-5.2) X10^6/uL Hgb (12.0-16.0) g/dL Hct (36-46) % MCV (80-100) fL MCH (26-34) PG MCHC (30-36) % RDW (11.6-14.8) % Plt Count (150-400) X10^3/uL Neut % (Auto) (50-75) % Lymph % (Auto) (25-40) % [place] % (Auto) (3-14) % Eos % (Auto) (2-4) % Baso % (Auto) (0-2) % Neut # (Auto) (0017-3700) /uL Lymph # (Auto) (9205-2058) /uL [place] # (Auto) (0-900) /uL Eos # (Auto) (0-450) /uL Baso # (Auto) (0-100) /uL Sodium (137-145) mmol/L Potassium (3.4-5.1) mmol/L Chloride (98-107) mmol/L Carbon Dioxide (22-32) mmol/L BUN (7-17) mg/dL Creatinine (0.52-1.04) mg/dL Estimated GFR (>60) mL/min BUN/Creatinine Ratio (6-22) Glucose (80-110) mg/dL Lactate 1.0 (0.7-2.1) mmol/L Calcium (8.4-10.2) mg/dL Total Bilirubin (0.2-1.3) mg/dL AST (14-36) IU/L ALT (<35) IU/L Alkaline Phosphatase (38-126) U/L Total Protein (6.3-8.2) g/dL Albumin (3.5-5.0) g/dL Globulin (1.7-4.1) g/dL Albumin/Globulin Ratio (1.0-2.8) Procalcitonin (<0.5) ng/mL Urine RBC 1-5/hpf (0-5/HPF) Urine WBC 30-100/hpf H (0-5/HPF) Ur Squamous Epith Cells 1-5 /hpf (0-5/HPF) Amorphous Sediment 1+ Urine Bacteria Moderate (10-30) H (None) Granular Casts 0-1/lpf (None) Ur Culture Indicated? Specimen cultured Urine Dip Bedside Urine Glucose Negative Bedside Urine Bilirubin + 1 Bedside Urine Ketone - Negative Urine Specific [place] 1.015 Bedside Urine Occult Blood +/- Bedside Urine pH 5.5 Bedside Urine Protein + 30 Bedside Urine Urobilinogen +/- 1mg Bedside Urine Nitrite - Negative Bedside Urine Leukocytes ++ 125 Esterase Discharge Plan Departure Patient Disposition: Admitted As Inpatient Clinical Impression: Acute pyelonephritis Sepsis Qualifiers: Sepsis type: sepsis due to unspecified organism Sepsis acute organ dysfunction status: without acute organ dysfunction Qualified Code(s): A41.9 - Sepsis, unspecified organism Discharge Date/Time: 04/03/19 13:30 Referrals: Aleksey Puente MD [Primary Care Provider] - Admit Date/Time: 04/03/19 11:48 Admit Provider: Neena Alamo
[2019-04-03] MEDS: ACETAMINOPHEN 325 MG TABLET 650 MG PO (10:32)
[2019-04-03 10:33] LABS: Procalcitonin 15.93 ng/mL (<0.5)
--- NOTE | 2019-04-03 10:35 | DI.US.S_ITS ---
PROCEDURE: US ABDOMEN COMPLETE INDICATIONS: SEPTIC, ELEVATED LIVER/ALK PHOS TECHNIQUE: Real-time scanning was performed of the abdominal and retroperitoneal organs, with image documentation. COMPARISON: None. FINDINGS: Liver: The liver is borderline enlarged at 17.7 cm in craniocaudal dimension. No focal liver lesions are identified. Gallbladder: The gallbladder is measuring within the upper limits of normal for size. No pericholecystic fluid or gallbladder wall thickening is evident. The patient did not exhibit a positive sonographic Grewal's. Punctate gallstones versus echogenic sludge within the dependent aspect of the gallbladder are noted to be mobile. Biliary ducts: Intrahepatic bile ducts are non-dilated. Extrahepatic bile duct caliber measures 4 mm. Normal is 6-7 mm or less in diameter, or 10 mm or less post-cholecystectomy. Pancreas: Visualized portions of the pancreas are sonographically normal. Spleen: The spleen is measuring within the upper limits of normal for size 11.9 cm. Kidneys: Kidneys are normal in size. Right kidney measures 11.2 cm long; left kidney measures 10.6 cm long. No hydronephrosis or shadowing nephrolithiasis. No solid masses. Increased cortical echogenicity is present involving both kidneys. Aorta: Visualized aorta is normal in caliber at less than 3 cm. Iliacs: Proximal common iliac arteries are normal in caliber at less than 2.5 cm. IVC: Intrahepatic inferior vena cava is patent. Miscellaneous: No free abdominal fluid. IMPRESSION: 1. Punctate unctate mobile gallstones versus minimal sludge within the gallbladder without convincing evidence of acute cholecystitis. 2. Enlarged gallbladder could potentially represent gallbladder hydrops. 3. Echogenic kidneys is suggestive of chronic medical renal disease. There is no hydronephrosis. Dictated by: Rosendo Hilliard M.D. on 04/03/2019 at 10:51 Approved by: Rosendo Hilliard M.D. on 04/03/2019 at 10:54
[2019-04-03 11:22] LABS: Amorphous Sediment Urine 1+; Bacteria Urine Moderate (10-30); Granular Casts Urine 0-1/LPF; RBC Urine 1-5/HPF (0-5/HPF); Squamous Epithelial Cell Urine 1-5 /HPF (0-5/HPF); WBC Urine 30-100/HPF (0-5/HPF)
[2019-04-03 11:23] LABS: Culture Indicated Urine Specimen Cultured
--- NOTE | 2019-04-03 13:39 | PC.NURSE ---
Day shift: Pt on AC unit at approx 1340 from ED. Oriented to room and call light. She has voided prior to getting in bed. Unsteady on feet and uses a cane. High fall risk protocol in effect. Pt also stated that she is having pain. Awaiting MD orders. Will continue to monitor.
--- NOTE | 2019-04-03 15:03 | PM.HP.1 ---
History of Present Illness History of Present Illness Date Patient Seen: 04/03/19 Chief complaint: states kidney infection, blood sugar concerns,afib Narrative: Patient is a 68-year-old female with a history of hypertension, hyperlipidemia, complex right femur fracture, history of DVT with recurrent urinary tract infection who was in her usual state of health until Thursday 5 days prior to admission. Patient noted her urine was cloudy, but she had no associated dysuria hematuria or pyuria. The following day the patient developed fever, chills, sweats. She reports feeling extremely weak. She has since lost her appetite. She was hopeful that she could get through the weekend and see her PCP on Thursday. Unfortunately she became significantly weaker such that she was unable to ambulate, she felt dehydrated, she was unable to eat as she had no appetite. She continued to have fevers and chills, also associated sweats, she did not take her temperature. 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 The patient was seen and evaluated in the emergency room, she was found to have a UA which was markedly positive with bacteria and pyuria, her procalcitonin was elevated at 15.3. The patient's liver function tests were elevated, she had a abdominal ultrasound, this confirmed gallbladder hydrops, but there was no Grewal sign, and nothing to suggest acute cholecystitis. The patient did have some small but gallstones versus biliary sludge on ultrasound. She received IV ceftriaxone in the emergency department. She received IV fluids. She is admitted to the hospital for ongoing treatment of sepsis secondary to urinary tract infection. Patient History Medical History (Updated 04/03/19 @ 15:20 by Neena Alamo MD) Anemia (Acute) Asthma (Acute) Chronic kidney disease, stage 3 (Acute) DVT (deep venous thrombosis) (Acute) Gastroesophageal reflux disease (Acute) HTN (hypertension) (Acute) Hyperlipidemia (Acute) Hypoglycemia (Acute) Right femoral fracture (Acute) Ventricular tachycardia (Acute) Surgical History (Updated 04/03/19 @ 15:16 by Neena Alamo MD) H/O hysterectomy for benign disease (Acute) Family & Social History Family History (Updated 04/03/19 @ 15:17 by Neena Alamo MD) Mother Breast cancer Aortic aneurysm Sister Breast cancer Grandmother Diabetes mellitus Social History: household members spouse,other Prior Living Arrangements House Safety & Behavioral: Feels Safe in Current Yes Environment Been Physically Hurt or No Threatened By a Person Suicidal Ideation Description None Suicide Plan Description No Plan Tobacco & Substance use: Smoking Status Never smoker alcohol intake frequency other Substance Use Type does not use Meds Home Medications and Allergies Home Medications Medication Instructions Recorded Confirmed Type albuterol sulfate [ProAir HFA] 1 puff INHALATION PRN PRN 11/13/17 06/19/18 History celecoxib 1 cap PO BID 11/13/17 06/19/18 History escitalopram oxalate 20 mg PO DAILY 11/13/17 06/19/18 History olmesartan 10 mg PO BID 11/13/17 06/19/18 History omeprazole 40 mg PO DAILY 11/13/17 06/19/18 History oxycodone 1 tab PO QID 11/13/17 06/19/18 History pitavastatin calcium [Livalo] 4 mg PO DAILY 11/13/17 06/19/18 History promethazine 25 mg PO AC 11/13/17 06/19/18 History tizanidine 1 cap PO QID 11/13/17 06/19/18 History metoprolol succinate 0.5 tab PO DAILY 06/19/18 06/19/18 History Allergies Allergy/AdvReac Type Severity Reaction Status Date / Time duloxetine [From Cymbalta] Allergy Numbness Verified 07/31/18 16:45 iodine Allergy Verified 07/31/18 16:44 Penicillins Allergy Verified 07/31/18 16:44 pregabalin [From Lyrica] Allergy Hallucinati Verified 07/31/18 16:45 ng Sulfa (Sulfonamide Allergy Verified 07/31/18 16:44 Antibiotics) Review of Systems Review of Systems Narrative: Patient reports headache, no blurred vision or double vision, she has no sore throat or cough, she denies any nausea or vomiting, she does report decreased appetite, she reports feeling weak, she has had difficulty ambulating. Patient reports some shortness of breath and wheezing, she has no dysuria hematuria, she reports pain in her joints all over, particularly over the right femur area. She has had no vomiting blood, no hematemesis or melena. She has had no rashes. She denies any numbness tingling or speech abnormalities. Further review of systems is negative Exam Vital Signs (past 8 hours): - 04/03/19 09:03 04/03/19 11:33 04/03/19 13:03 Temperature Pulse Rate 68 78 Respiratory Rate 18 18 18 Blood Pressure 93/56 L Blood Pressure [Left Arm] 102/57 L 136/61 Pulse Oximetry 100 99 96 04/03/19 13:35 Temperature 100.0 F H Pulse Rate 88 Respiratory Rate 18 Blood Pressure 149/74 H Blood Pressure [Left Arm] Pulse Oximetry 100 Oxygen Delivery Method Room Air Oxygen Flow Rate 0 Narrative Exam Narrative: Ill-appearing elderly female in bed HEENT: Normocephalic atraumatic, extraocular muscles are intact, oropharynx reveals dry mucous membranes neck is supple, there is no appreciable adenopathy, no thyromegaly, Lungs: Decreased breath sounds otherwise clear Cardiac exam: Regular rate and rhythm, normal S1-S2, 2/6 systolic ejection murmur Abdomen: Soft, nontender, nondistended, no appreciable hepatosplenomegaly, no rebound tenderness, no board-like rigidity, no palpable mass Extremities: No edema, she has multiple well-healed surgical incisions over the right knee and right femur, there are surgical scars on the left lower extremity as well. Skin: No evidence of rashes Neuro exam: Nonfocal Psychiatric exam: The patient is awake alert and appropriate, she is clear in her mentation, she has no hallucinations, no evidence of delusion Musculoskeletal exam: She has normal bulk and tone. Patient has multiple scars on the right and left knee from recent surgery Objective Labs Result Diagrams: 04/03/19 09:40 04/03/19 09:40 Labs: Laboratory Results - last 24 hr 04/03/19 04/03/19 04/03/19 09:40 09:40 09:40 WBC 5.6 RBC 3.67 L Hgb 11.4 L Hct 34.1 L MCV 93.1 MCH 31.1 MCHC 33.4 RDW 13.6 Plt Count 117 L Neut % (Auto) 86.4 H Lymph % (Auto) 4.2 L [place] % (Auto) 9.0 Eos % (Auto) 0.1 L Baso % (Auto) 0.3 Neut # (Auto) 4900 Lymph # (Auto) 200 L [place] # (Auto) 500 Eos # (Auto) 0 Baso # (Auto) 0 Sodium 135 L Potassium 3.9 Chloride 98 Carbon Dioxide 28 BUN 44 H Creatinine 1.40 H Estimated GFR 37.5 L BUN/Creatinine Ratio 31.4 H Glucose 122 H Lactate Calcium 9.4 Total Bilirubin 0.9 AST 154 H ALT 332 H Alkaline Phosphatase 291 H Total Protein 6.5 Albumin 3.9 Globulin 2.6 Albumin/Globulin Ratio 1.5 Procalcitonin 15.93 H Urine RBC Urine WBC Ur Squamous Epith Cells Amorphous Sediment Urine Bacteria Granular Casts Ur Culture Indicated? 04/03/19 04/03/19 09:40 11:11 WBC RBC Hgb Hct MCV MCH MCHC RDW Plt Count Neut % (Auto) Lymph % (Auto) [place] % (Auto) Eos % (Auto) Baso % (Auto) Neut # (Auto) Lymph # (Auto) [place] # (Auto) Eos # (Auto) Baso # (Auto) Sodium Potassium Chloride Carbon Dioxide BUN Creatinine Estimated GFR BUN/Creatinine Ratio Glucose Lactate 1.0 Calcium Total Bilirubin AST ALT Alkaline Phosphatase Total Protein Albumin Globulin Albumin/Globulin Ratio Procalcitonin Urine RBC 1-5/hpf Urine WBC 30-100/hpf H Ur Squamous Epith Cells 1-5 /hpf Amorphous Sediment 1+ Urine Bacteria Moderate (10-30) H Granular Casts 0-1/lpf Ur Culture Indicated? Specimen cultured Assessment & Plan Assessment & Plan narrative: Impression 1. 68-year-old female admitted to the hospital with severe sepsis, manifested as fever, elevated liver function tests, markedly abnormal urinalysis. Suspect her sepsis is related to a urinary tract infection. The patient was given 30 cc/kilogram in the emergency department. Her initial lactate was 1. In addition she was given IV ceftriaxone, this will be continued on the floor, blood cultures have been obtained, urine culture is pending, will repeat procalcitonin in the morning. 2. Gallbladder hydrops, associated with elevated liver function tests. Patient has no right upper quadrant pain, she has no pain with palpation. However given the abnormality on ultrasound associated with her elevated liver function tests will repeat her LFTs in the morning. If they remain elevated would consider a HIDA scan to rule out cystic duct obstruction. Patient will be treated with antibiotics, ceftriaxone, which will cover gallbladder at pathology if indicated. 3. Chronic kidney disease, stage III, this is chronic 4. Hypertension chronic present on admission. Patient's blood pressure medications will be held given her acute sepsis and dehydration. Will resume blood pressure medications tomorrow 5. GERD, will continue proton pump inhibitor 6. History of asthma, will continue her albuterol inhaler Patient will be placed on Lovenox for DVT prophylaxis. Will continue her oxycodone, and add Ultram for pain as well. Patient indicates she is a full code will note that her record accordingly. Quality VTE Deep Vein Thrombosis/Pulmonary Embolism Present on Admission: No
[2019-04-03] MEDS: TRAMADOL 50 MG TABLET PO ×2 (16:04→22:50)
[2019-04-03] MEDS: CEFTRIAXONE 2 GM/50 ML FROZ.PIGGY IV (16:07)
[2019-04-03] MEDS: ENOXAPARIN 40 MG/0.4 ML SYRINGE SUBCUT (16:07)
[2019-04-03] MEDS: LACTATED RINGERS 1,000 ML 150 ML IV ×2 (16:07→22:46)
[2019-04-03] MEDS: OXYCODONE IR 5 MG TABLET PO (16:43)
--- NOTE | 2019-04-03 17:08 | PC.NURSE ---
Addendum entered by Sariah Wilkinson R.N. 04/03/19 21:53: 2140: Pt had a temp of 101.3 and 103 @ 1930 and 1999 Med w/tylenol, ice placed in axcilla and forhead. MD aware, no orders recieved, Pt already on IV ABO and tylenol. HS CBG = 105, no coverage ordered/required. SCD in place. Tele shows NSR per ICU staff. Call light w/in reach, bed alarm on for pt safety. Continue w/plan of care. Addendum entered by Sariah Wilkinson R.N. 04/03/19 20:14: 5: Pt w/temp 101.7, med w/ tylenol at 1999 Will assess. Original Note: Pt med at 1600 w/tramadol for 10/10 pain. This brought no relief, Med @ 1700 w/oxycodone as per ordes w/ some relief. Lungs clear, SpO2 97% RA. Right lower leg incision w/bandaid in place, CDI Tele showing NSR/BBB per ICU staff. AC CBG = 91, no coverage required. IV LR @ 150cc/hr infusing via pump into the RAC w/o incidence. Call light w/in reach, bed alarm on for pt safety.
[2019-04-03 21:44] LABS: Add Manual Diff / Slide Review NO; Basophils Absolute Auto 0 /uL (0-100); Basophils Percent Auto 0.3 % (0-2); Eosinophils Absolute Auto 0 /uL (0-450); Hematocrit 31.2 % (36-46); Hemoglobin 10.6 g/dL (12.0-16.0); Lymphocytes Absolute Auto 600 /uL (1100-4500); Lymphocytes Percent Auto 8.8 % (25-40); Mean Corpuscular HGB Conc 33.9 % (30-36); Mean Corpuscular Hemoglobin 31.3 PG (26-34); Mean Corpuscular Volume 92.3 fL (80-100); Monocytes Absolute Auto 800 /uL (0-900); Monocytes Percent Auto 11.8 % (3-14); Neutrophils Absolute Auto 5200 /uL (1500-7000); Neutrophils Percent Auto 79.1 % (50-75); Platelet Count 107 X10^3/uL (150-400); Red Blood Cell Count 3.38 X10^6/uL (4.0-5.2); Red Cell Distribution Width 13.6 % (11.6-14.8); White Blood Cell Count 6.6 X10^3/uL (4.5-11.0)
[2019-04-04] VITALS (16 sets, daily range): BP systolic 90–179; BP diastolic 49–93; PULSE 52–87; RESP 16–18; TEMP 37–39.8; O2SAT 94–100
[2019-04-04 04:08] LABS: Acinetobacter baumannii Not Detected (Not Detect); E. coli Detected (Not Detect); Enterobacteriaceae species Detected (Not Detect); Enterococcus species Not Detected (Not Detect); KPC (carbapenem-resist gene) Not Detected (Not Detect); Listeria monocytogenes Not Detected (Not Detect); Staphylococcus species Not Detected (Not Detect); Streptococcus agalactiae (Gr B Not Detected (Not Detect); Streptococcus pneumonia Not Detected (Not Detect); Streptococcus pyogenes (Gr A) Not Detected (Not Detect); Streptococcus species Not Detected (Not Detect)
[2019-04-04 04:09] LABS: Candida albicans Not Detected (Not Detect); Candida glabrata Not Detected (Not Detect); Candida krusei Not Detected (Not Detect); Candida parapsilosis Not Detected (Not Detect); Candida tropicalis Not Detected (Not Detect); Enterobacter cloacae complex Not Detected (Not Detect); Haemophilus influenzae Not Detected (Not Detect); Neisseria meningitidis Not Detected (Not Detect); Proteus species Not Detected (Not Detect); Pseudomonas aeruginosa Not Detected (Not Detect); Serratia marcescens Not Detected (Not Detect)
--- NOTE | 2019-04-04 04:12 | PC.NURSE ---
Maria D Mack from the Laboratory called at [phone] to notify that the 04/03 cultures came back positive for E. Coli. Omar MOSQUERA notified at 3301 of the results.
[2019-04-04] MEDS: ACETAMINOPHEN 325 MG TABLET 650 MG PO ×2 (05:11→19:13)
[2019-04-04] MEDS: PANTOPRAZOLE 20 MG TABLET PO (05:11)
[2019-04-04] MEDS: LACTATED RINGERS 1,000 ML 150 ML IV ×3 (05:13→18:46)
[2019-04-04 05:23] LABS: Add Manual Diff / Slide Review NO; Basophils Absolute Auto 0 /uL (0-100); Basophils Percent Auto 0.2 % (0-2); Eosinophils Absolute Auto 0 /uL (0-450); Eosinophils Percent Auto 0.1 % (2-4); Hematocrit 29.5 % (36-46); Hemoglobin 9.9 g/dL (12.0-16.0); Lymphocytes Absolute Auto 400 /uL (1100-4500); Lymphocytes Percent Auto 8.5 % (25-40); Mean Corpuscular HGB Conc 33.7 % (30-36); Mean Corpuscular Hemoglobin 31.3 PG (26-34); Mean Corpuscular Volume 92.8 fL (80-100); Monocytes Absolute Auto 700 /uL (0-900); Monocytes Percent Auto 14.6 % (3-14); Neutrophils Absolute Auto 3800 /uL (1500-7000); Neutrophils Percent Auto 76.6 % (50-75); Platelet Count 95 X10^3/uL (150-400); Red Blood Cell Count 3.17 X10^6/uL (4.0-5.2); Red Cell Distribution Width 13.7 % (11.6-14.8)
[2019-04-04 05:31] LABS: Alanine Aminotransferase 198 IU/L (<35); Albumin 3.1 g/dL (3.5-5.0); Albumin Globulin Ratio 1.3 (1.0-2.8); Alkaline Phosphatase 202 U/L (38-126); Aspartate Aminotransferase 69 IU/L (14-36); BUN Creatinine Ratio 29.1 (6-22); Bilirubin Total 0.5 mg/dL (0.2-1.3); Blood Urea Nitrogen 32 mg/dL (7-17); Carbon Dioxide 26 mmol/L (22-32); Chloride 100 mmol/L (98-107); Estimated Glomerular Filt Rate 49.5 mL/min (>60); Globulin 2.4 g/dL (1.7-4.1); Glucose 92 mg/dL (80-110); HEMOLYSIS < 15 (0-50); Potassium 3.8 mmol/L (3.4-5.1); Sodium 135 mmol/L (137-145); Total Protein 5.5 g/dL (6.3-8.2)
[2019-04-04 05:51] LABS: Procalcitonin 7.58 ng/mL (<0.5)
[2019-04-04] MEDS: OXYCODONE IR 5 MG TABLET PO (08:13)
[2019-04-04] MEDS: ESCITALOPRAM 10 MG TABLET 20 MG PO (09:46)
[2019-04-04] MEDS: TRAMADOL 50 MG TABLET PO (10:39)
[2019-04-04] MEDS: OXYCODONE IR 5 MG TABLET 10 MG PO ×2 (13:26→18:39)
--- NOTE | 2019-04-04 15:25 | PC.NURSE ---
Day Shift Plts were 95 today, trending down. Spoke with and mari held. Pt c/o pain this shift. Gave 5mg oxy, then 50mg tramadol, no effect and pain continued to climb. Pt then stated it was a 04/26. Notified MD and order for 10mg oxy obtained. Gave this to pt. She was sleeping after admin. Very tired, as she has not slept all night. Per pt she doesn't sleep well at night. Notified MD and he stated he will order ambien.
[2019-04-04] MEDS: CEFTRIAXONE 2 GM/50 ML FROZ.PIGGY IV (16:01)
--- NOTE | 2019-04-04 16:14 | PM.PN.1 ---
Subjective Subjective Date Patient Seen: 04/04/19 Interval history: Patient 68-year-old female admitted due to sepsis secondary to UTI. Blood cultures from admission positive for E coli. Patient has improvement in fever, chills and sweats. She is complaining of severe pain in the back and right leg which is chronic with history of lumbar surgery and complex fracture repair of right femur earlier this year at [place]. Exam Vital Signs (past 8 hours): - 04/04/19 12:42 04/04/19 13:07 04/04/19 16:02 Temperature 98.6 F Pulse Rate 87 Respiratory Rate 18 Blood Pressure 161/80 H Pulse Oximetry 100 100 95 Oxygen Delivery Method Room Air Oxygen Flow Rate 0 Narrative Exam Narrative: General: Patient is alert but appears quite uncomfortable complaining of back and leg pain Lungs: Clear to auscultation Heart: Regular rhythm Abdomen: Soft and nontender Extremities: No distal edema Neurological: No focal weakness Objective Labs Result Diagrams: 04/04/19 05:04 04/04/19 05:04 Labs: Laboratory Results - last 24 hr 04/03/19 04/04/19 04/04/19 21:30 05:04 05:04 WBC 6.6 5.0 RBC 3.38 L 3.17 L Hgb 10.6 L 9.9 L Hct 31.2 L 29.5 L MCV 92.3 92.8 MCH 31.3 31.3 MCHC 33.9 33.7 RDW 13.6 13.7 Plt Count 107 L 95 L Neut % (Auto) 79.1 H 76.6 H Lymph % (Auto) 8.8 L 8.5 L [place] % (Auto) 11.8 14.6 H Eos % (Auto) 0.0 L 0.1 L Baso % (Auto) 0.3 0.2 Neut # (Auto) 5200 3800 Lymph # (Auto) 600 L 400 L [place] # (Auto) 800 700 Eos # (Auto) 0 0 Baso # (Auto) 0 0 Sodium 135 L Potassium 3.8 Chloride 100 Carbon Dioxide 26 BUN 32 H Creatinine 1.10 H Estimated GFR 49.5 L BUN/Creatinine Ratio 29.1 H Glucose 92 Calcium 9.0 Total Bilirubin 0.5 AST 69 H ALT 198 H Alkaline Phosphatase 202 H Total Protein 5.5 L Albumin 3.1 L Globulin 2.4 Albumin/Globulin Ratio 1.3 Procalcitonin A. baumannii (PCR) Merlene albicans (PCR) C. glabrata (PCR) C. krusei (PCR) C. parapsilosis (PCR) C. tropicalis (PCR) Enterobacteriac sp PCR E. cloacae complex PCR Enterococcus sp PCR E. coli (PCR) H. influenzae (PCR) Klebsiella oxytoca PCR Klebsiella pneumoniae List. monocytogenes PCR N. meningitidis (PCR) Proteus species (PCR) Serratia marcescens PCR Staphylococcus sp PCR Staph aureus (PCR) mecA-Methicil Res Gene Streptococcus sp PCR Group A Strep (PCR) Strep agalactiae (PCR) Strep pneumoniae (PCR) P. aeruginosa (PCR) Kyree/B-Vanco Res Genes KPC-Carbap Res Gene PCR 04/04/19 04/04/19 05:04 12:42 WBC RBC Hgb Hct MCV MCH MCHC RDW Plt Count Neut % (Auto) Lymph % (Auto) [place] % (Auto) Eos % (Auto) Baso % (Auto) Neut # (Auto) Lymph # (Auto) [place] # (Auto) Eos # (Auto) Baso # (Auto) Sodium Potassium Chloride Carbon Dioxide BUN Creatinine Estimated GFR BUN/Creatinine Ratio Glucose Calcium Total Bilirubin AST ALT Alkaline Phosphatase Total Protein Albumin Globulin Albumin/Globulin Ratio Procalcitonin 7.58 H A. baumannii (PCR) Not detected Merlene albicans (PCR) Not detected C. glabrata (PCR) Not detected C. krusei (PCR) Not detected C. parapsilosis (PCR) Not detected C. tropicalis (PCR) Not detected Enterobacteriac sp PCR Detected H E. cloacae complex PCR Not detected Enterococcus sp PCR Not detected E. coli (PCR) Detected H H. influenzae (PCR) Not detected Klebsiella oxytoca PCR Not detected Klebsiella pneumoniae Not detected List. monocytogenes PCR Not detected N. meningitidis (PCR) Not detected Proteus species (PCR) Not detected Serratia marcescens PCR Not detected Staphylococcus sp PCR Not detected Staph aureus (PCR) Not detected mecA-Methicil Res Gene Not Reportable Streptococcus sp PCR Not detected Group A Strep (PCR) Not detected Strep agalactiae (PCR) Not detected Strep pneumoniae (PCR) Not detected P. aeruginosa (PCR) Not detected Kyree/B-Vanco Res Genes Not Reportable KPC-Carbap Res Gene PCR Not detected Assessment & Plan Assessment & Plan narrative: Patient 68-year-old female admitted due to sepsis secondary to UTI. Blood cultures from admission positive for E coli. Patient has improvement in fever, chills and sweats. She is complaining of severe pain in the back and right leg which is chronic with history of lumbar surgery and complex fracture repair of right femur earlier this year at [place]. 1. Sepsis with septicemia due to urinary infection -improving fever and procalcitonin decreasing, WBC was normal on admission -blood cultures from admission growing E coli -continue Rocephin pending culture susceptibilities 2. Gallbladder hydrops, associated with elevate LFTs, present on admission -no right upper quadrant pain and LFTs improving with treatment of sepsis, doubt acute cholecystitis 3. Acute on chronic back and leg pain -patient status post lumbar surgery and complex right femur fracture repair last December at [place], complaining of increased pain and spasms since admission, pain not relieved by current oxycodone dose -increase oxycodone to 10 mg q.4 hours as needed, patient also on tizanidine at home-restart 4 mg b.i.d. for muscle spasms, continue Celebrex -zolpidem 5 mg HS as needed ordered for sleep 4. Hypertension, chronic -mildly hypotensive on admit and now elevated BP, resume metoprolol ER patient takes at home 5. Acute on chronic anemia and thrombocytopenia -acute due to sepsis, not requiring transfusions -hold Lovenox for DVT prophylaxis if platelets below 100 K, do note patient has remote history of DVT, place SCDs if tolerated -repeat labs in a.m. Quality VTE Deep Vein Thrombosis/Pulmonary Embolism Present on Admission: No
[2019-04-04] MEDS: METOPROLOL ER 25 MG TABLET PO (16:52)
--- NOTE | 2019-04-04 17:04 | CM.DANOTE ---
Addendum entered by Tabby Canales R.N. 04/04/19 17:12: DCP assessment continued: Patient is I with all ADL's at [place] line and drives her own vehicle. patient was alert and oriented during assessment and was able to communicate her wants and needs effectively. Tabby Canales RN Original Note: DCP assessment: EMR reviewed: Patient is a 68 yr old female who was admitted IP for severe sepsis from UTI. Patients PCP is Dr. Puente. CM met with Patient at the bedside CM/RN explained role. Patient currently lives with her (DPOA) Aleksey who she a week ago. Patient that she has a FWW, and multiple canes at home to help with mobility. Patient lives in a single level home with not stairs or elevated transitions in the home. Patient stated she was a week ago and that her youngest son didn't approve and hasn't spoken to the patient in 6 months. Patients first 5 yrs ago from cancer. Patient stated she wants her Aleksey to be her emergency contact and DPOA. patient also stated that she didn't want her medical information discussed with her youngest son. I: medicare 2nd: [employer] Plan: D/C home with spouse when she is medically stable. No d/c needs noted at this time. CM department will F/U with the patient to determine if any d/c planning needs arise. Tabby Canales RN Discharge Planning/Care Management Advanced directive, confirm from FAMILY Start: 04/03/19 14:56 Freq: Q24H Status: Active Protocol: Document 04/03/19 16:00 KMD (Rec: 04/03/19 16:31 KMD [id number]) Advance Directive, confirm on record Time 16:30 Person contacted Patient Copy received No CM Discharge Assessment Start: 04/04/19 17:00 Freq: Status: Active Protocol: Document 04/04/19 17:01 HS (Rec: 04/04/19 17:04 HS [id number]) Discharge Planning Assessment Assigned Epic Professional Tabby Canales RN DPOA/Assigned Designee Name Aleksey Tapia () Contact Information [phone] Advance Directives? Yes History Provided By Patient Has Patient been admitted in last 30 No days? Prior Living Arrangements House Household Members spouse,other Type of transporation used prior to Drives own vehicle admit Independent with ADL's Yes Is patient alert and oriented? Yes Caregiver for Another No DME Already Rented / Owned Bath Bench,FWW / Walker,Cane Discharge Plan Home Transportation Arrangement Patients Aleksey Tapia would transport home Referrals Initiated None needed Whiteboard Updated in Patient Room with Yes name and ext. # of Epic Professional Review Status In Process Next Review Type Continued Stay Review
[2019-04-04] MEDS: SENNOSIDES 8.6 MG TABLET 17.2 MG PO (18:40)
[2019-04-04] MEDS: TIZANIDINE 4 MG TABLET PO (19:13)
--- NOTE | 2019-04-04 20:09 | PC.NURSE ---
PATIENTS TEMP UP AGAIN,ROOM TEMP DECREASED WARM BLANKETS REMOVED AND TYLENOL GIVEN. PATIENT IS UP WITH 1 ASSIST AND WALKER TO BATHROOM, PAIN TO KNEE AND BACK MANAGED WITH OXYCODONE
[2019-04-05] VITALS (11 sets, daily range): BP systolic 89–125; BP diastolic 47–67; PULSE 56–63; RESP 16–18; TEMP 36.5–37.4; O2SAT 94–100
[2019-04-05] MEDS: LACTATED RINGERS 1,000 ML 150 ML IV ×2 (01:49→08:06)
[2019-04-05] MEDS: OXYCODONE IR 5 MG TABLET 10 MG PO ×3 (03:13→20:15)
[2019-04-05] MEDS: ACETAMINOPHEN 325 MG TABLET 650 MG PO (05:10)
[2019-04-05] MEDS: PANTOPRAZOLE 20 MG TABLET PO (05:10)
[2019-04-05 05:23] LABS: Add Manual Diff / Slide Review NO; Basophils Absolute Auto 0 /uL (0-100); Basophils Percent Auto 0.2 % (0-2); Eosinophils Absolute Auto 0 /uL (0-450); Eosinophils Percent Auto 0.3 % (2-4); Hematocrit 30.7 % (36-46); Hemoglobin 10.4 g/dL (12.0-16.0); Lymphocytes Absolute Auto 500 /uL (1100-4500); Lymphocytes Percent Auto 12.1 % (25-40); Mean Corpuscular HGB Conc 33.8 % (30-36); Mean Corpuscular Hemoglobin 31.4 PG (26-34); Mean Corpuscular Volume 92.8 fL (80-100); Monocytes Absolute Auto 500 /uL (0-900); Monocytes Percent Auto 12.2 % (3-14); Neutrophils Absolute Auto 3100 /uL (1500-7000); Neutrophils Percent Auto 75.2 % (50-75); Platelet Count 117 X10^3/uL (150-400); Red Cell Distribution Width 13.6 % (11.6-14.8); White Blood Cell Count 4.1 X10^3/uL (4.5-11.0)
[2019-04-05 05:28] LABS: Alanine Aminotransferase 164 IU/L (<35); Albumin 3.3 g/dL (3.5-5.0); Albumin Globulin Ratio 1.3 (1.0-2.8); Alkaline Phosphatase 191 U/L (38-126); Aspartate Aminotransferase 71 IU/L (14-36); BUN Creatinine Ratio 24.5 (6-22); Bilirubin Total 0.4 mg/dL (0.2-1.3); Blood Urea Nitrogen 27 mg/dL (7-17); Calcium 9.6 mg/dL (8.4-10.2); Carbon Dioxide 27 mmol/L (22-32); Chloride 99 mmol/L (98-107); Estimated Glomerular Filt Rate 49.5 mL/min (>60); Globulin 2.6 g/dL (1.7-4.1); Glucose 102 mg/dL (80-110); HEMOLYSIS < 15 (0-50); Potassium 3.6 mmol/L (3.4-5.1); Sodium 134 mmol/L (137-145); Total Protein 5.9 g/dL (6.3-8.2)
--- NOTE | 2019-04-05 06:59 | PC.NURSE ---
Patient's right hand appears swollen/edematous without redness and pain at 0650. Patient states, I noticed it was swollen an hour ago when I got up to use the restroom. Omar MOSQUERA notified at 0655.
[2019-04-05] MEDS: ESCITALOPRAM 10 MG TABLET 20 MG PO (08:03)
[2019-04-05] MEDS: TIZANIDINE 4 MG TABLET PO ×2 (08:03→20:12)
[2019-04-05] MEDS: ENOXAPARIN 40 MG/0.4 ML SYRINGE SUBCUT (08:03)
--- NOTE | 2019-04-05 12:53 | PC.NURSE ---
LOC: SI was talking to someone on the phone and nobody was there. Pt reporting she is having some auditory and visual hallucinations. She knows she is hallucinating, Dr. Edwards made aware of same. Pt also has a swollen rt hand and Dr. Edwards was made aware of that. Pt denies any injury to the extremity. Edema started last night. - pt reports she is having less urgency and frequency, was having flank pain yesterday but not today and has needed no pain medication this shift. has been up with her walker, reports she had a broken femur which was misdiagnosed and she had to have ext repair of the leg several months ago. Pt is resting quietly at this time. Cont w/poc.
--- NOTE | 2019-04-05 13:12 | PM.PN.1 ---
Subjective Subjective Date Patient Seen: 04/05/19 Interval history: Patient 68-year-old female admitted due to sepsis secondary to UTI. Blood cultures and urine culture from admission positive for E coli. Fever resolved. She is complaining of diffuse joint pains and stiffness, right hand swelling, and severe pain in the back and right leg which are chronic with history of lumbar surgery and complex fracture repair of right femur in December [facility] Also she was noted to be anxious, confused and delusional thought she was having phone conversation and nobody was there. Also complaining sweats and itching on her back. Exam Vital Signs (past 8 hours): - 04/05/19 08:00 04/05/19 10:37 04/05/19 12:00 Temperature 98.3 F 98.4 F Pulse Rate 63 56 L Respiratory Rate 18 18 Blood Pressure 107/59 L 89/47 L Pulse Oximetry 95 98 96 Oxygen Delivery Method Room Air Oxygen Flow Rate 0 Narrative Exam Narrative: General: Patient is alert but appears anxious and uncomfortable complaining of joint, back and leg pain Lungs: Clear to auscultation Heart: Regular rhythm Abdomen: Soft and nontender Extremities: No distal edema, but there is soft tissue edema of the distal femur at site of prior surgery, no redness or drainage. There is perhaps mild puffiness of the right hand without obvious joint effusion. No redness of any joints. Neurological: Slightly anxious, slightly confused but aware of confusion, nonfocal Skin: No rash Objective Labs Result Diagrams: 04/05/19 05:04 04/05/19 05:04 Labs: Laboratory Results - last 24 hr 04/05/19 04/05/19 05:04 05:04 WBC 4.1 L RBC 3.30 L Hgb 10.4 L Hct 30.7 L MCV 92.8 MCH 31.4 MCHC 33.8 RDW 13.6 Plt Count 117 L Neut % (Auto) 75.2 H Lymph % (Auto) 12.1 L [place] % (Auto) 12.2 Eos % (Auto) 0.3 L Baso % (Auto) 0.2 Neut # (Auto) 3100 Lymph # (Auto) [address] [place] # (Auto) 500 Eos # (Auto) 0 Baso # (Auto) 0 Sodium 134 L Potassium 3.6 Chloride 99 Carbon Dioxide 27 BUN 27 H Creatinine 1.10 H Estimated GFR 49.5 L BUN/Creatinine Ratio 24.5 H Glucose 102 Calcium 9.6 Total Bilirubin 0.4 AST 71 H ALT 164 H Alkaline Phosphatase 191 H Total Protein 5.9 L Albumin 3.3 L Globulin 2.6 Albumin/Globulin Ratio 1.3 Assessment & Plan Assessment & Plan narrative: Patient 68-year-old female admitted due to sepsis secondary to UTI. Blood cultures and urine culture from admission positive for E coli. 1. Sepsis with septicemia due to urinary infection -improving fever and procalcitonin decreasing, WBC was normal on admission and has remained normal -blood cultures and urine culture from admission growing E coli, urine culture pansensitive, blood culture sensitivities pending but presumably same as urine -continue Rocephin day 3 IV antibiotics, consider discharge tomorrow on oral antibiotic if patient stable 2. Gallbladder hydrops, associated with elevate LFTs, present on admission -no right upper quadrant pain and LFTs improving with treatment of sepsis, doubt acute cholecystitis 3. Acute on chronic back and leg pain, diffuse arthralgias -patient status post lumbar surgery and complex right femur fracture repair last December at [facility], complaining of increased pain and spasms since admission -increased oxycodone on 04/04/2019 to 10 mg q.4 hours as needed, patient also on tizanidine at home-restart 4 mg b.i.d. for muscle spasms -also patient has been off of her Celebrex, on 04/05/2019 restarted Celebrex 200 mg b.i.d. per home routine -hydroxyzine 25 mg q.4 hours as needed for itching -zolpidem 5 mg HS as needed for sleep -no obvious joint infection on exam, arthralgias may be reactive due to sepsis and also being off of her Celebrex 4. Hypertension, chronic -BP has been labile, both low and mildly elevated -continue metoprolol ER 12.5 mg q.d. patient takes at home -we have not resumed her olmesartan 5. Acute on chronic anemia and thrombocytopenia -acute due to sepsis, stable, not requiring transfusions -hold Lovenox for DVT prophylaxis if platelets below 100 K, do note patient has remote history of DVT, place SCDs if tolerated 6. Mild acute metabolic/multifactorial encephalopathy -as noted mildly confused and anxious (though self-aware of her confusion), encephalopathy probably multifactorial due to uncontrolled pain, sepsis Patient improving from sepsis standpoint and possibly ready for discharge home tomorrow Thursday on oral antibiotic. Quality VTE Deep Vein Thrombosis/Pulmonary Embolism Present on Admission: No
[2019-04-05] MEDS: CELECOXIB 200 MG CAPSULE PO ×2 (13:41→20:12)
[2019-04-05] MEDS: hydrOXYzine pamoate 25 MG CAPSULE PO (13:41)
[2019-04-05] MEDS: CEFTRIAXONE 2 GM/50 ML FROZ.PIGGY IV (14:43)
[2019-04-05] MEDS: SENNOSIDES 8.6 MG TABLET 17.2 MG PO (20:12)
[2019-04-06] VITALS: O2SAT 94
[2019-04-06 04:00] VITALS: O2SAT 96
[2019-04-06 06:00] VITALS: BP 98/50; PULSE 63; RESP 16; TEMP 36.6; O2SAT 96
[2019-04-06] MEDS: PANTOPRAZOLE 20 MG TABLET PO (06:18)
[2019-04-06] MEDS: OXYCODONE IR 5 MG TABLET 10 MG PO (06:19)
[2019-04-06 07:30] VITALS: O2SAT 98
[2019-04-06 07:37] VITALS: BP 109/66; PULSE 64; RESP 16; TEMP 37.2; O2SAT 96
[2019-04-06 08:28] LABS: Add Manual Diff / Slide Review NO; Basophils Absolute Auto 0 /uL (0-100); Basophils Percent Auto 0.4 % (0-2); Eosinophils Absolute Auto 0 /uL (0-450); Hematocrit 28.8 % (36-46); Hemoglobin 9.7 g/dL (12.0-16.0); Lymphocytes Absolute Auto 600 /uL (1100-4500); Lymphocytes Percent Auto 15.1 % (25-40); Mean Corpuscular HGB Conc 33.8 % (30-36); Mean Corpuscular Hemoglobin 31.1 PG (26-34); Mean Corpuscular Volume 92.3 fL (80-100); Monocytes Absolute Auto 600 /uL (0-900); Monocytes Percent Auto 13.9 % (3-14); Neutrophils Absolute Auto 2800 /uL (1500-7000); Neutrophils Percent Auto 69.6 % (50-75); Platelet Count 124 X10^3/uL (150-400); Red Blood Cell Count 3.12 X10^6/uL (4.0-5.2); Red Cell Distribution Width 13.6 % (11.6-14.8); White Blood Cell Count 4.1 X10^3/uL (4.5-11.0)
[2019-04-06 08:40] LABS: Alanine Aminotransferase 264 IU/L (<35); Albumin 3.1 g/dL (3.5-5.0); Albumin Globulin Ratio 1.2 (1.0-2.8); Alkaline Phosphatase 212 U/L (38-126); Aspartate Aminotransferase 364 IU/L (14-36); Bilirubin Total 0.4 mg/dL (0.2-1.3); Blood Urea Nitrogen 23 mg/dL (7-17); Calcium 9.6 mg/dL (8.4-10.2); Carbon Dioxide 29 mmol/L (22-32); Chloride 99 mmol/L (98-107); Estimated Glomerular Filt Rate 55.3 mL/min (>60); Globulin 2.6 g/dL (1.7-4.1); Glucose 99 mg/dL (80-110); HEMOLYSIS < 15 (0-50); Potassium 4.3 mmol/L (3.4-5.1); Sodium 134 mmol/L (137-145); Total Protein 5.7 g/dL (6.3-8.2)
[2019-04-06 08:56] LABS: Magnesium 1.8 mg/dL (1.6-2.3)
[2019-04-06 08:57] LABS: Procalcitonin 2.36 ng/mL (<0.5)
[2019-04-06] MEDS: ESCITALOPRAM 10 MG TABLET 20 MG PO (09:03)
[2019-04-06] MEDS: TIZANIDINE 4 MG TABLET PO (09:03)
[2019-04-06] MEDS: CELECOXIB 200 MG CAPSULE PO (09:03)
[2019-04-06] MEDS: ENOXAPARIN 40 MG/0.4 ML SYRINGE SUBCUT (09:04)
--- NOTE | 2019-04-06 10:42 | PM.DS.1 ---
History of Present Illness History of Present Illness Date Patient Seen: 04/03/19 Chief complaint: states kidney infection, blood sugar concerns,afib Narrative: Written by Dr. Alamo: Patient is a 68-year-old female with a history of hypertension, hyperlipidemia, complex right femur fracture, history of DVT with recurrent urinary tract infection who was in her usual state of health until Thursday 5 days prior to admission. Patient noted her urine was cloudy, but she had no associated dysuria hematuria or pyuria. The following day the patient developed fever, chills, sweats. She reports feeling extremely weak. She has since lost her appetite. She was hopeful that she could get through the weekend and see her PCP on Thursday. Unfortunately she became significantly weaker such that she was unable to ambulate, she felt dehydrated, she was unable to eat as she had no appetite. She continued to have fevers and chills, also associated sweats, she did not take her temperature. 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 The patient was seen and evaluated in the emergency room, she was found to have a UA which was markedly positive with bacteria and pyuria, her procalcitonin was elevated at 15.3. The patient's liver function tests were elevated, she had a abdominal ultrasound, this confirmed gallbladder hydrops, but there was no Grewal sign, and nothing to suggest acute cholecystitis. The patient did have some small but gallstones versus biliary sludge on ultrasound. She received IV ceftriaxone in the emergency department. She received IV fluids. She is admitted to the hospital for ongoing treatment of sepsis secondary to urinary tract infection. Discharge Providers Provider Date of admission: 04/03/19 11:48 Discharge Date: 04/06/19 Primary care physician: Aleksey Puente MD Discharge provider: Snow Garrett DO Summary Hospital Course Discharge Diagnosis: 1. Acute sepsis, present on admission. Resolved. 2. Acute E.coli UTI with bacteremia, present on admission. Resolving. 3. Gallbladder hydrops with transaminitis, present on admission. Active. 4. Acute on chronic back and leg pain, present on admission. Acute portion improving. 5. Hypertension, chronic, present on admission. Stable. 6. Acute on chronic anemia and thrombocytopenia, present on admission. Stable. 7. Mild acute metabolic encephalopathy, present on admission. Resolved. Hospital Course: Ryanne Rocha is a 68-year-old female with a past medical history significant for hypetension, hyperlipidemia, complex right femur fractur and chronic pain with opiate dependence, history of DVT, and recurrent urinary tract infection who presented to the ED with fever, chills, weakness with inability to ambulate and admitted for UTI. 1. Acute sepsis, present on admission. Resolved. 2. Acute E.coli UTI with bacteremia, present on admission. Resolving. -improving fever and procalcitonin decreasing, WBC was normal on admission and has remained normal -Blood cultures and urine culture from admission growing pansensitive E coli. -Continued ceftriaxone 2 g IV daily x3 days and discharged on cefixime 400 mg daily for 7 additional days to complete total 10 day course of antibiotics. 3. Gallbladder hydrops with transaminitis, present on admission. Active. -No right upper quadrant pain. LFTs mildly elevated 300's with normal bilirubin. Cholecystitis unlikely. -Transaminitis improved with treatment of sepsis, E coli UTI, and bacteremia then trended up again. Recommended continued outpatient monitoring of LFTs per PCP. 4. Acute on chronic back and leg pain, present on admission. Acute portion improving. -Patient status post lumbar surgery and complex right femur fracture repair last December at [place], complaining of increased pain and spasms since admission. -Increased oxycodone on 04/04/2019 to 10 mg every 4 hours as needed, patient also on tizanidine at home-restart 4 mg twice daily for muscle spasms -Also patient has been off of her Celebrex, on 04/05/2019 restarted Celebrex 200 mg twice daily per home routine -Continued hydroxyzine 25 mg every 4 hours as needed for itching -Continued zolpidem 5 mg daily at bedtime as needed for sleep. -No obvious joint infection on exam, arthralgias may be reactive due to sepsis and also being off of her Celebrex. Recommend close outpatient follow up at as high risk with bacteremia for hardware seeding and infection. 5. Hypertension, chronic, present on admission. Stable. -BP has been labile, both low and mildly elevated. -Discontinued metoprolol as patient is no longer taking per refractive surgeon as possibly provoked V-tach. -Held home olmesartan 10 mg twice daily while hospitalized. Continued at time of discharge and recommended close outpatient monitoring per PCP. 6. Acute on chronic anemia and thrombocytopenia, present on admission. Stable. -Secondary to sepsis and not requiring transfusions. -Held Lovenox for DVT prophylaxis if platelets below 100,00. Patient does have remote history of DVT and placed SCDs as tolerated. 7. Mild acute metabolic encephalopathy, present on admission. Resolved. -As noted mildly confused and anxious (though self-aware of her confusion), encephalopathy probably multifactorial due to sepsis, UTI, and uncontrolled pain. Exam Vital Signs (past 8 hours): - 04/06/19 04:00 04/06/19 06:00 04/06/19 07:37 Temperature 97.9 F 99.0 F Pulse Rate 63 64 Respiratory Rate 16 16 Blood Pressure 98/50 L 109/66 Pulse Oximetry 96 96 96 Oxygen Delivery Method Room Air Oxygen Flow Rate 0 Narrative Exam Narrative: General: Elderly female sitting in bed and in no acute distress, well-developed, well-nourished, mild somnolence but appropriately interactive. HEENT: Normocephalic, atraumatic. External ears without defect. Pupils equal, round, and reactive to light. Anicteric sclerae, moist conjunctivae, and no lid lag. Neck: Supple with full range of motion. No jugular venous distension. No lymphadenopathy or thyromegaly. Cardiovascular: Regular rate and rhythm without murmurs, rubs, or gallops appreciated. Pulmonary: Clear to auscultation bilaterally without crackles, wheezes, or rhonchi. Normal respiratory effort with no use of accessory muscles. Abdomen: Soft, bowel sounds present, nontender, nondistended. No hepatosplenomegaly or masses appreciated. Extremities: No clubbing or cyanosis. Right lower extremity with several old scars which have healed well without any erythema, tracking or cord. Patient does have mild tenderness to palpation anteriorly on thigh. Skin: Normal temperature, turgor, and texture; no rash, ulcers, or subcutaneous nodules appreciated. Neurological: Cranial nerves grossly intact. Generalized weakness. Psychiatric: Mildly anxious mood and affect. Appears alert and oriented to person and place. Mild somnolence. Objective Labs Result Diagrams: 04/06/19 08:22 04/06/19 08:22 Labs: Laboratory Results - last 24 hr 04/06/19 04/06/19 04/06/19 08:22 08:22 08:22 WBC 4.1 L RBC 3.12 L Hgb 9.7 L Hct 28.8 L MCV 92.3 MCH 31.1 MCHC 33.8 RDW 13.6 Plt Count 124 L Neut % (Auto) 69.6 Lymph % (Auto) 15.1 L [place] % (Auto) 13.9 Eos % (Auto) 1.0 L Baso % (Auto) 0.4 Neut # (Auto) 2800 Lymph # (Auto) 600 L [place] # (Auto) 600 Eos # (Auto) 0 Baso # (Auto) 0 Sodium 134 L Potassium 4.3 Chloride 99 Carbon Dioxide 29 BUN 23 H Creatinine 1.00 Estimated GFR 55.3 L BUN/Creatinine Ratio 23.0 H Glucose 99 Calcium 9.6 Magnesium Total Bilirubin 0.4 AST 364 H ALT 264 H Alkaline Phosphatase 212 H Total Protein 5.7 L Albumin 3.1 L Globulin 2.6 Albumin/Globulin Ratio 1.2 Procalcitonin 2.36 H 04/06/19 08:22 WBC RBC Hgb Hct MCV MCH MCHC RDW Plt Count Neut % (Auto) Lymph % (Auto) [place] % (Auto) Eos % (Auto) Baso % (Auto) Neut # (Auto) Lymph # (Auto) [place] # (Auto) Eos # (Auto) Baso # (Auto) Sodium Potassium Chloride Carbon Dioxide BUN Creatinine Estimated GFR BUN/Creatinine Ratio Glucose Calcium Magnesium 1.8 Total Bilirubin AST ALT Alkaline Phosphatase Total Protein Albumin Globulin Albumin/Globulin Ratio Procalcitonin Discharge Plan Discharge Plan Patient Disposition: Home Health Service Discharge comment: You're being discharged home with home health for nursing. Please consider physical and occupational therapy with home health versus outpatient. Please follow-up at your scheduled appointment with Dr. Puente regarding your hospitalization. You are being treated for E coli urinary tract infection which got into your blood stream making the course of antibiotic treatment longer in duration. You have been prescribe cefixime 400 mg daily for 7 additional days to complete total 10 day antibiotic course. Highly recommend you consider following up at the [facility] regarding your hardware to assure this is monitored closely as you're susceptible to recurrent hardware infection. Discharge orders & Medications Prescriptions: Continued celecoxib 200 mg capsule 1 cap PO BID RF: 0 omeprazole 40 mg capsule,delayed release(DR/EC) 40 mg PO DAILY RF: 0 promethazine 25 mg tablet 25 mg PO AC RF: 0 albuterol sulfate 90 mcg/actuation HFA aerosol inhaler 1 puff Inhalation PRN PRN (Reason: Shortness Of Breath) RF: 0 escitalopram oxalate 20 mg tablet 20 mg PO DAILY RF: 0 tizanidine 2 mg capsule 1 cap PO QID RF: 0 pitavastatin calcium 4 mg tablet 4 mg PO DAILY RF: 0 olmesartan 5 mg tablet 10 mg PO BID RF: 0 Discontinued oxycodone 5 mg tablet 1 tab PO QID RF: 0 Other Ambulatory Orders: Hepatic (Liver) Panel (Stat) Timeframe: 5 Days Facility: [facility] - Location: Laboratory Ordered By: nSow Garrett Follow up/Referrals: Aleksey Puente MD [Primary Care Provider] - 04/11/19 9:15 am (appt:04/11 check in at 9:[address] puente [phone] ) Diet/Activity/Treatments Diet: Low-sodium and Low-cholesterol Activity: Activity as tolerated with forward wheeled walker and/or cane Visit Report/Discharge Packet Instructions: DI for Urinary Tract Infection (UTI), How to Prevent Falls, DI for Sepsis -- Adult Discharge Data Primary Care Provider: Aleksey Puente Discharges patient from system. Discharge Date/Time: 04/06/19 11:00 Quality VTE Deep Vein Thrombosis/Pulmonary Embolism Present on Admission: No
--- NOTE | 2019-04-06 11:56 | PC.NURSE ---
Discharge: Pt feels ready to d/c home. Spouse is present at time of teaching. Reviewed information for uti, sepsis, fall prevention. Follow up appt has been made and pt also understands she needs to follow up at since she had sepsis and and her old previous femur surgery w/hardware. Discussed if she notices her joints are swollen even if it is only one she needs to contact Dr. Puente and make him aware. Today the rt hand is not swollen at all. (she had a previous fx in this hand) and the rt knee is back to it's normal size for her. This can occur after the antibiotics are complete. Questions answered. Her rx [facility] e[facility]sent [facility] [place]. Pt d/c home via auto w/spouse.
--- NOTE | 2019-04-06 14:35 | CM.DPNOTE ---
DC Note: Pt discussed in morning rounds, ready for DC today, home w/spouse. Dr Garrett relayed that pt asked for HH RN but doesn't want HH PT ? This PAINTER AND DECORATOR attempted to speak w/pt about this and she had already gone, DC home w/spouse via pov. YURY
== END 2019-04-06 11:00 | disposition home health service (06) | DRG 871 ==
LOC: ED 11:46 → AC 11:48
PROVIDERS: Internal Medicine; Admitting Provider Internal Medicine; Emergency Provider Emergency Medicine; PCP Internal Medicine; Visit Provider Internal Medicine
DX: A41.9 Sepsis, unspecified organism (principal); G93.41 Metabolic encephalopathy; N39.0 Urinary tract infection, site not specified; K82.1 Hydrops of gallbladder; A41.51 Sepsis due to Escherichia coli [E. coli]; R65.20 Severe sepsis without septic shock; I12.9 Hypertensive chronic kidney disease with stage 1 through stage 4 chronic kidney disease, or unspecified chronic kidney disease; N18.3 Chronic kidney disease, stage 3 (moderate); D64.89 Other specified anemias; D69.59 Other secondary thrombocytopenia; E78.5 Hyperlipidemia, unspecified; G89.29 Other chronic pain
CPT/HCPCS: 36415; 76700; 80053; 81003; 81015; 82962; 83605; 83735; 84145; 85025; 87040; 87077; 87086; 87150; 87186; 87205; 93005; 99282; 99284; J0696; J1650

== ENCOUNTER → 2019-06-08 18:21 | Outpatient (ROUT) | payer MEDICARE, OTHER, SELFPAY ==
[2019-04-03 14:36] VITALS: BMI 23.9
== END ==
PROVIDERS: PCP Internal Medicine; Visit Provider Internal Medicine
DX: S81.001D Unspecified open wound, right knee, subsequent encounter (principal); L08.9 Local infection of the skin and subcutaneous tissue, unspecified; T81.30XD Disruption of wound, unspecified, subsequent encounter
CPT/HCPCS: 87070; 87075; 87205

== ENCOUNTER → 2019-07-27 13:08 | Outpatient (CLI) | payer MEDICARE, OTHER, SELFPAY ==
[2019-04-03 14:36] VITALS: BMI 23.9
--- NOTE | 2019-07-27 | DI.RAD.S_ITS ---
PROCEDURE: XR HIP W PEL IF DONE RT 2V INDICATIONS: Pain in right hip TECHNIQUE: AP pelvis with lateral view(s) of the right hip(s). COMPARISON: None. FINDINGS: Bones: No fractures or dislocations. Pelvic ring appears intact. No suspicious bony lesions. Lower lumbar spondylosis and facet disease. Mild bilateral hip joint degeneration. Sacroiliac joints grossly unremarkable. Soft tissues: The visualized bowel gas pattern is normal. No suspicious soft tissue calcifications. IMPRESSION: Mild bilateral hip joint degeneration Lower lumbar spondylosis and facet disease. Dictated by: Ernie Brar M.D. on 07/27/2019 at 15:01 Approved by: Ernie Brar M.D. on 07/27/2019 at 15:03
== END ==
PROVIDERS: PCP Internal Medicine; Referring Provider Internal Medicine; Visit Provider Internal Medicine
DX: M25.551 Pain in right hip (principal); M16.0 Bilateral primary osteoarthritis of hip; M47.816 Spondylosis without myelopathy or radiculopathy, lumbar region
CPT/HCPCS: 73502

== ENCOUNTER 2019-08-06 11:49 | Inpatient (IN) | payer MEDICARE, OTHER, SELFPAY ==
[2019-04-03 14:36] VITALS: BMI 23.9
[2019-08-06] VITALS (17 sets, daily range): BP systolic 102–149; BP diastolic 51–94; PULSE 65–114; RESP 10–20; TEMP 36.7–37.6; O2SAT 93–100; BMI 24.7
--- NOTE | 2019-08-06 | DI.RAD.S_ITS ---
PROCEDURE: XR HIP W PEL IF DONE RT 2V INDICATIONS: RIGHT HIP ORIF COMPARISON: [facility], , XR FEMUR RIGHT, 08/04/2019, 10:50. FINDINGS: 2 limited intraoperative fluoroscopically stored images of the proximal right femur were obtained for intraoperative hardware localization purposes. These images are not meant for diagnostic purposes. Intraoperative findings related to a proximal right femoral ORIF are present. IMPRESSION: Intraoperative images obtained during the patient's proximal right femoral ORIF procedure. Dictated by: Rosendo Hilliard M.D. on 08/06/2019 at 15:12 Approved by: Rosendo Hilliard M.D. on 08/06/2019 at 15:13
[2019-08-06 12:23] LABS: Add Manual Diff / Slide Review NO; Basophils Absolute Auto 0 /uL (0-100); Basophils Percent Auto 0.3 % (0-2); Eosinophils Absolute Auto 100 /uL (0-450); Eosinophils Percent Auto 1.6 % (2-4); Hematocrit 37.2 % (36-46); Hemoglobin 12.1 g/dL (12.0-16.0); Lymphocytes Absolute Auto 1100 /uL (1100-4500); Lymphocytes Percent Auto 13.7 % (25-40); Mean Corpuscular HGB Conc 32.7 % (30-36); Mean Corpuscular Hemoglobin 29.7 PG (26-34); Mean Corpuscular Volume 90.9 fL (80-100); Monocytes Absolute Auto 600 /uL (0-900); Monocytes Percent Auto 7.5 % (3-14); Neutrophils Absolute Auto 6000 /uL (1500-7000); Neutrophils Percent Auto 76.9 % (50-75); Platelet Count 190 X10^3/uL (150-400); Red Blood Cell Count 4.09 X10^6/uL (4.0-5.2); Red Cell Distribution Width 15.2 % (11.6-14.8); White Blood Cell Count 7.8 X10^3/uL (4.5-11.0)
[2019-08-06 12:36] LABS: Alanine Aminotransferase 19 IU/L (<35); Albumin 4.5 g/dL (3.5-5.0); Albumin Globulin Ratio 1.6 (1.0-2.8); Alkaline Phosphatase 114 U/L (38-126); Aspartate Aminotransferase 31 IU/L (14-36); BUN Creatinine Ratio 26.5 (6-22); Bilirubin Total 0.6 mg/dL (0.2-1.3); Blood Urea Nitrogen 31 mg/dL (7-17); Calcium 9.7 mg/dL (8.4-10.2); Carbon Dioxide 24 mmol/L (22-32); Chloride 101 mmol/L (98-107); Globulin 2.9 g/dL (1.7-4.1); Glucose 82 mg/dL (80-110); HEMOLYSIS < 15 (0-50); Potassium 4.4 mmol/L (3.4-5.1); Sodium 135 mmol/L (137-145); Total Protein 7.4 g/dL (6.3-8.2)
[2019-08-06 12:41] LABS: PTT Partial Thromboplastin Tim 31 SECONDS (26.4-36.2)
[2019-08-06 12:50] LABS: INR 0.9 (0.9-1.3); Prothrombin Time 10.7 SECONDS (10.1-12.7)
--- NOTE | 2019-08-06 13:16 | ED_ITS ---
HPI - Extremity Injury (Lower) <DEMETRI Syed - Last Filed: 08/06/19 15:59> General Chief Complaint: Extremity Injury, Lower Stated Complaint: glf/ Time Seen by Provider: 08/06/19 11:54 Source: patient Mode of arrival: Wheelchair Limitations: no limitations History of Present Illness HPI Narrative: This is a 69-year-old female, nonsmoker, who presents to ED with spouse with chief complain of severe right groin pain and difficulty with ambulation due to pain. Patient reports she had fall about 18 days ago secondary to spinal claudication which causes at times it causes her legs not to respond well. She had pelvis, fever x-ray done on the 07/27/19 which was arranged by her PCP, Dr. Aleksey Puente, was informed that her x-ray test was negative for fracture. Patient has history of right femur fracture which was repaired at [facility] in 06/2018 from fall secondary to a fever/V-tach. Patient takes baby aspirin daily and is not currently on anticoagulants. The patient reports she has been having difficulty with ambulation with 2 canes and when she was traveling to [place] the pain became worse and she was evaluated in [place] ED in [place] with x-ray and CT pelvis which indicated nondisplaced fracture, approximately 3 cm from the most proximal portion of the right femoral neck and osseious changes in the proximal right femur related to prior intramedullary nail placement. Patient was given options for surgical repair in [place] or return to home and follow-up and patient chose the latter and arrived back at home last night. Patient reports intact sensation. Patient has a history of labile blood pressure, hyperlipidemia, type 2 diabetes not currently using insulin or oral hypoglycemic agent, GERD, stage 3 kidney disease. Related Data Home Medications Medication Instructions Recorded Confirmed albuterol sulfate 1 puff INHALATION PRN PRN 11/13/17 08/06/19 celecoxib 1 cap PO BID 11/13/17 08/06/19 escitalopram oxalate 20 mg PO DAILY 11/13/17 08/06/19 olmesartan 10 mg PO BID 11/13/17 08/06/19 omeprazole 40 mg PO DAILY 11/13/17 08/06/19 pitavastatin calcium 4 mg PO DAILY 11/13/17 08/06/19 promethazine 25 mg PO AC 11/13/17 08/06/19 tizanidine 1 cap PO QID 11/13/17 08/06/19 Allergies Allergy/AdvReac Type Severity Reaction Status Date / Time duloxetine [From Cymbalta] Allergy Numbness Verified 08/06/19 11:59 iodine Allergy Verified 08/06/19 11:59 Penicillins Allergy Verified 08/06/19 11:59 pregabalin [From Lyrica] Allergy Hallucinati Verified 08/06/19 11:59 ng Sulfa (Sulfonamide Allergy Verified 08/06/19 11:59 Antibiotics) Review of Systems <Brenden Sofia [facility] - Last Filed: 08/06/19 15:59> Review of Systems Narrative: General: Denies fever, chills, fatigue, malaise, sweats. HEENT: Denies sinus pain, ear pain, sore throat, difficulty swallowing, dizziness. Respiratory: Denies dyspnea, cough, wheezing, hemoptysis, sputum. Cardiovascular: Denies chest pain, palpitations, orthopnea, edema. Gastrointestinal: Denies (+) nausea, vomiting, abdominal pain, diarrhea, constipation, melena. : Denies dysuria, frequency, incontinence, hematuria, urinary retention. Musculoskeletal: See HPI Skin: Denies rash, skin lesions, or other. Neurologic: Denies weakness, headache, numbness, change in speech, confusion, seizures, incoordination. Psychiatric: No concerning psychosocial issues. 12-point review of systems is negative except for those stated above. Patient History <Brenden Kimberlyn [facility] - Last Filed: 08/06/19 15:59> Medical History Anemia (Acute) Asthma (Acute) Chronic kidney disease, stage 3 (Acute) DVT (deep venous thrombosis) (Acute) Gastroesophageal reflux disease (Acute) HTN (hypertension) (Acute) Hyperlipidemia (Acute) Hypoglycemia (Acute) Right femoral fracture (Acute) Ventricular tachycardia (Acute) Surgical History H/O hysterectomy for benign disease (Acute) Family History Mother Breast cancer Aortic aneurysm Sister Breast cancer Grandmother Diabetes mellitus Social History household members: spouse and other Smoking Status: Never smoker Smoking Status: Never smoker alcohol intake frequency: other Substance Use Type: does not use Exam <DEMETRI Syed - Last Filed: 08/06/19 15:59> Narrative Exam Narrative: GEN: Alert, oriented x 3, well appearing and nourished, and moderate distress from pain with movements. Head: Normal cephalic, atraumatic. No scalp or temporal tenderness, palpable mass or rash. EYES: Pupils are equal, round, and reactive to light and accommodation. Extraocular muscles are intact bilaterally. There is no subconjunctival hemorrhage, exudate and sclera non-icteric. ENT: Hearing grossly intact. Nose without bleeding, purulent discharge or deviation. Mucous membrane dry, no mucosal lesion. Neck: Trachea in midline. No JVD, non-tender without lymphadenopathy. No masses or thyroid megaly. Supple, non-tender and no meningeal signs. CARDIAC: Normal regular rate and rhythm without murmurs, gallops, or rubs. No chest wall tenderness. No peripheral edema, cyanosis or pallor. Capillary refill is less than 2 seconds. RESPIRATORY: Lungs are clear to auscultate bilaterally. No cough, wheezes, rales, or rhonchi. No stridor, respiratory distress, increase work of breathing, or accessary muscle used. ABD: Abdomen soft, nontender and non-distended. No guarding or rebound tenderness to palpate. Bowel sounds are normal in all 4 quadrants. There is no palpable masses or organomegaly. SKIN: Warm, dry, normal color for patient. No erythema, lesions or rash over visible areas. BACK: Nontender without deformity or crepitance. No flank tenderness. NEUROLOGICAL: Alert and oriented to place, time and person. Sensation and motor function intact bilaterally. No facial droops, dysphasia. PSYCHIATRIC: Good judgement and reason, without hallucinations, abnormal affect or abnormal behaviors during the examination. Initial Vital Signs Initial Vital Signs: Vital Signs Temperature 98.6 F 08/06/19 11:55 Pulse Rate 66 08/06/19 11:55 Respiratory Rate 14 08/06/19 11:55 Blood Pressure 149/94 H 08/06/19 11:55 Pulse Oximetry 99 08/06/19 11:55 Extrem General: normal to inspection Right lower extremity: normal to inspection, normal capillary refill, hip/thigh (TTP in right groin, shorten RLE) Details: tenderness and abnormal ROM (decreased strength with plantar flexion and dorsal extension) Details: pain with active ROM during and pain with passive ROM during; no swelling, ROM abnormal, no penetrating wound, no deformity and no unusual warmth and foot Details: toes with normal ROM; no tenderness; ROM limited and no edema <Renny Dillon DO - Last Filed: 08/07/19 07:59> Initial Vital Signs Initial Vital Signs: Vital Signs Temperature 98.6 F 08/06/19 11:55 Pulse Rate 66 08/06/19 11:55 Respiratory Rate 14 08/06/19 11:55 Blood Pressure 149/94 H 08/06/19 11:55 Pulse Oximetry 99 08/06/19 11:55 Scores <DEMETRI Syed Last Filed: 08/06/19 15:59> GCS [place] coma scale eye opening: Spontaneous [place] coma scale verbal response: Orientated [place] coma scale motor response: Obey commands [place] coma scale total score: 15 Course [facility] Last Filed: 08/06/19 15:59> Orders Ordered: Al Hydrox/Mg Hydrox/Simethicone (Maalox Plus) 30 ml PO QID PRN PRN Reason: Dyspepsia Albuterol (Ventolin Hfa) 1 puff INH PRN PRN PRN Reason: SHORTNESS OF BREATH Bisacodyl (Dulcolax) 10 mg ND PRN PRN PRN Reason: Constipation Celecoxib (Celebrex) 200 mg PO BID [facility] Last Admin: 08/06/19 20:34 Dose: 200 mg Documented by: EDUARDO Docusate Sodium (Colace) 100 mg PO BID [facility] Last Admin: 08/06/19 20:34 Dose: 100 mg Documented by: EDUARDO Enoxaparin Sodium (Lovenox) 30 mg SUBCUT DAILY [facility] Escitalopram Oxalate (Lexapro) 20 mg PO DAILY [facility] Hydromorphone HCl (Dilaudid) 0.2 mg IV Q1H PRN PRN Reason: Pain, Severe (7-10) Hydromorphone HCl (Dilaudid) 0.5 mg IV Q1H PRN PRN Reason: Pain, Severe (7-10) Hydromorphone HCl (Dilaudid) 2 mg PO Q3H PRN PRN Reason: Pain, Severe (7-10) Last Admin: 08/07/19 05:10 Dose: 2 mg Documented by: Admin: 08/06/19 20:35 Dose: 2 mg Documented by: EDUARDO Clindamycin Phosphate (Cleocin) 900 mg in 50 mls @ 50 mls/hr IV Q8H [facility] Last Infusion: 08/07/19 03:05 Dose: 50 mls/hr Documented by: Admin: 08/07/19 02:05 Dose: 50 mls/hr Documented by: Infusion: 08/06/19 20:26 Dose: 50 mls/hr Documented by: Admin: 08/06/19 18:11 Dose: 50 mls/hr Documented by: EDUARDO Sodium Chloride (Normal Saline 0.9%) 1,000 mls @ 84 mls/hr IV CONT [facility] Stop: 08/07/19 18:00 Last Admin: 08/06/19 20:34 Dose: 84 mls/hr Documented by: EDUARDO Lorazepam (Ativan) 0.5 mg PO Q6HR PRN PRN Reason: Anxiety Magnesium Hydroxide (Milk Of Magnesia) 30 ml PO BEDTIME [facility] Last Admin: 08/06/19 20:34 Dose: 30 ml Documented by: EDUARDO Metoclopramide HCl (Reglan) 10 mg IV Q6HR PRN PRN Reason: Nausea And Vomiting Naloxone HCl (Narcan) 0.2 mg IV Q2MIN PRN PRN Reason: Opiate Reversal Olmesartan (Benicar) 10 mg PO BID [facility] Last Admin: 08/06/19 20:32 Dose: Not Given Documented by: EDUARDO Ondansetron HCl (Zofran) 4 mg IV Q4HR PRN PRN Reason: Nausea And Vomiting Pantoprazole Sodium (Protonix) 40 mg PO 0600 [facility] Last Admin: 08/07/19 05:12 Dose: 40 mg Documented by: SHAQUILLE Promethazine HCl (Phenergan) 25 mg PO AC [facility] Last Admin: 08/06/19 18:11 Dose: 25 mg Documented by: EDUARDO Simvastatin (Zocor) 40 mg PO BEDTIME [facility] Last Admin: 08/06/19 20:34 Dose: 40 mg Documented by: EDUARDO Tizanidine HCl (Zanaflex) 2 mg PO QID PRN PRN Reason: Spasms Discontinued Medications Acetaminophen (Tylenol) 325 mg PO PACUNOW PRN PRN Reason: Pain, Mild (1-3) Albuterol (Ventolin) 2.5 mg INH NOW PRN PRN Reason: Coughing, Wheezing, Dyspnea Albuterol (Ventolin Hfa (Vent/Covid R/O)) 1 puff INH PRN PRN PRN Reason: Shortness Of Breath Hydromorphone HCl (Dilaudid) 0.5 mg IV NOW ONE Stop: 08/06/19 13:11 Last Admin: 08/06/19 13:27 Dose: 0.5 mg Documented by: DENIZ Hydromorphone HCl (Dilaudid) 0 mg IV Q5M PRN PRN Reason: Pain, Moderate (4-6) Last Admin: 08/06/19 16:22 Dose: 0.5 mg Documented by: LATRICE Hydromorphone HCl (Dilaudid) 0 mg IV Q5MIN PRN PRN Reason: Pain, Mild (1-3) Sodium Chloride (Normal Saline 0.9%) 1,000 mls @ 125 mls/hr IV CONT [facility] Last Admin: 08/06/19 18:17 Dose: Not Given Documented by: EDUARDO Lactated Ringer's (Lactated Ringers) 1,000 mls @ 42 mls/hr IV CONT [facility] Last Infusion: 08/06/19 16:38 Dose: 0 mls/hr Documented by: Infusion: 08/06/19 14:21 Dose: 42 mls/hr Documented by: Admin: 08/06/19 14:07 Dose: 42 mls/hr Documented by: DENIZ Clindamycin Phosphate (Cleocin) 900 mg in 50 mls @ 50 mls/hr IV NOW ONE Stop: 08/06/19 15:20 Last Infusion: 08/06/19 15:15 Dose: 0 mls/hr Documented by: Admin: 08/06/19 14:35 Dose: 50 mls/hr Documented by: KEM Ondansetron HCl (Zofran) 4 mg IV NOW ONE Stop: 08/06/19 13:11 Last Admin: 08/06/19 13:27 Dose: 4 mg Documented by: DENIZ Ondansetron HCl (Zofran) 4 mg IV NOW PRN PRN Reason: Nausea And Vomiting Oxycodone/Acetaminophen (Percocet 5/325) 1 tab PO PACUNOW PRN PRN Reason: Mild or Moderate Pain Last Admin: 08/06/19 16:55 Dose: 1 tab Documented by: Admin: 08/06/19 16:19 Dose: 1 tab Documented by: LATRICE Vital Signs Vital signs: Vital Signs - 8 hr 08/06/19 11:55 Temperature 98.6 F Pulse Rate 66 Respiratory Rate 14 Blood Pressure 149/94 H Pulse Oximetry 99 <Renny Dillon DO - Last Filed: 08/07/19 07:59> Orders Ordered: Al Hydrox/Mg Hydrox/Simethicone (Maalox Plus) 30 ml PO QID PRN PRN Reason: Dyspepsia Albuterol (Ventolin Hfa) 1 puff INH PRN PRN PRN Reason: SHORTNESS OF BREATH Bisacodyl (Dulcolax) 10 mg ND PRN PRN PRN Reason: Constipation Celecoxib (Celebrex) 200 mg PO BID [facility] Last Admin: 08/06/19 20:34 Dose: 200 mg Documented by: EDUARDO Docusate Sodium (Colace) 100 mg PO BID [facility] Last Admin: 08/06/19 20:34 Dose: 100 mg Documented by: EDUARDO Enoxaparin Sodium (Lovenox) 30 mg SUBCUT DAILY [facility] Escitalopram Oxalate (Lexapro) 20 mg PO DAILY [facility] Hydromorphone HCl (Dilaudid) 0.2 mg IV Q1H PRN PRN Reason: Pain, Severe (7-10) Hydromorphone HCl (Dilaudid) 0.5 mg IV Q1H PRN PRN Reason: Pain, Severe (7-10) Hydromorphone HCl (Dilaudid) 2 mg PO Q3H PRN PRN Reason: Pain, Severe (7-10) Last Admin: 08/07/19 05:10 Dose: 2 mg Documented by: Admin: 08/06/19 20:35 Dose: 2 mg Documented by: EDUARDO Clindamycin Phosphate (Cleocin) 900 mg in 50 mls @ 50 mls/hr IV Q8H [facility] Last Infusion: 08/07/19 03:05 Dose: 50 mls/hr Documented by: Admin: 08/07/19 02:05 Dose: 50 mls/hr Documented by: Infusion: 08/06/19 20:26 Dose: 50 mls/hr Documented by: Admin: 08/06/19 18:11 Dose: 50 mls/hr Documented by: EDUARDO Sodium Chloride (Normal Saline 0.9%) 1,000 mls @ 84 mls/hr IV CONT [facility] Stop: 08/07/19 18:00 Last Admin: 08/06/19 20:34 Dose: 84 mls/hr Documented by: EDUARDO Lorazepam (Ativan) 0.5 mg PO Q6HR PRN PRN Reason: Anxiety Magnesium Hydroxide (Milk Of Magnesia) 30 ml PO BEDTIME [facility] Last Admin: 08/06/19 20:34 Dose: 30 ml Documented by: EDUARDO Metoclopramide HCl (Reglan) 10 mg IV Q6HR PRN PRN Reason: Nausea And Vomiting Naloxone HCl (Narcan) 0.2 mg IV Q2MIN PRN PRN Reason: Opiate Reversal Olmesartan (Benicar) 10 mg PO BID [facility] Last Admin: 08/06/19 20:32 Dose: Not Given Documented by: EDUARDO Ondansetron HCl (Zofran) 4 mg IV Q4HR PRN PRN Reason: Nausea And Vomiting Pantoprazole Sodium (Protonix) 40 mg PO 0600 [facility] Last Admin: 08/07/19 05:12 Dose: 40 mg Documented by: SHAQUILLE Promethazine HCl (Phenergan) 25 mg PO AC [facility] Last Admin: 08/06/19 18:11 Dose: 25 mg Documented by: EDUARDO Simvastatin (Zocor) 40 mg PO BEDTIME [facility] Last Admin: 08/06/19 20:34 Dose: 40 mg Documented by: EDUARDO Tizanidine HCl (Zanaflex) 2 mg PO QID PRN PRN Reason: Spasms Discontinued Medications Acetaminophen (Tylenol) 325 mg PO PACUNOW PRN PRN Reason: Pain, Mild (1-3) Albuterol (Ventolin) 2.5 mg INH NOW PRN PRN Reason: Coughing, Wheezing, Dyspnea Albuterol (Ventolin Hfa (Vent/Covid R/O)) 1 puff INH PRN PRN PRN Reason: Shortness Of Breath Hydromorphone HCl (Dilaudid) 0.5 mg IV NOW ONE Stop: 08/06/19 13:11 Last Admin: 08/06/19 13:27 Dose: 0.5 mg Documented by: DENIZ Hydromorphone HCl (Dilaudid) 0 mg IV Q5M PRN PRN Reason: Pain, Moderate (4-6) Last Admin: 08/06/19 16:22 Dose: 0.5 mg Documented by: LATRICE Hydromorphone HCl (Dilaudid) 0 mg IV Q5MIN PRN PRN Reason: Pain, Mild (1-3) Sodium Chloride (Normal Saline 0.9%) 1,000 mls @ 125 mls/hr IV CONT [facility] Last Admin: 08/06/19 18:17 Dose: Not Given Documented by: EDUARDO Lactated Ringer's (Lactated Ringers) 1,000 mls @ 42 mls/hr IV CONT [facility] Last Infusion: 08/06/19 16:38 Dose: 0 mls/hr Documented by: Infusion: 08/06/19 14:21 Dose: 42 mls/hr Documented by: Admin: 08/06/19 14:07 Dose: 42 mls/hr Documented by: DENIZ Clindamycin Phosphate (Cleocin) 900 mg in 50 mls @ 50 mls/hr IV NOW ONE Stop: 08/06/19 15:20 Last Infusion: 08/06/19 15:15 Dose: 0 mls/hr Documented by: Admin: 08/06/19 14:35 Dose: 50 mls/hr Documented by: KEM Ondansetron HCl (Zofran) 4 mg IV NOW ONE Stop: 08/06/19 13:11 Last Admin: 08/06/19 13:27 Dose: 4 mg Documented by: DENIZ Ondansetron HCl (Zofran) 4 mg IV NOW PRN PRN Reason: Nausea And Vomiting Oxycodone/Acetaminophen (Percocet 5/325) 1 tab PO PACUNOW PRN PRN Reason: Mild or Moderate Pain Last Admin: 08/06/19 16:55 Dose: 1 tab Documented by: Admin: 08/06/19 16:19 Dose: 1 tab Documented by: LATRICE Vital Signs Vital signs: Vital Signs - 8 hr 08/06/19 11:55 Temperature 98.6 F Pulse Rate 66 Respiratory Rate 14 Blood Pressure 149/94 H Pulse Oximetry 99 MDM - Extremity Injury (Lower) <HARRY SyedP - Last Filed: 08/06/19 15:59> Differential Diagnosis Differential diagnosis: Likely fracture of femur Medical Records Attestation: I reviewed the patient's medical records. Lab Data Attestation: I reviewed the patient's lab results. Result diagrams: 08/07/19 05:47 08/06/19 12:12 Labs: Lab Results 08/06/19 08/06/19 08/06/19 Range/Units 12:12 12:12 12:12 WBC 7.8 (4.5-11.0) X10^3/uL RBC 4.09 (4.0-5.2) X10^6/uL Hgb 12.1 (12.0-16.0) g/dL Hct 37.2 (36-46) % MCV 90.9 (80-100) fL MCH 29.7 (26-34) PG MCHC 32.7 (30-36) % RDW 15.2 H (11.6-14.8) % Plt Count 190 (150-400) X10^3/uL Neut % (Auto) 76.9 H (50-75) % Lymph % (Auto) 13.7 L (25-40) % [place] % (Auto) 7.5 (3-14) % Eos % (Auto) 1.6 L (2-4) % Baso % (Auto) 0.3 (0-2) % Neut # (Auto) 6000 (0416-8330) /uL Lymph # (Auto) 1100 (1911-1260) /uL [place] # (Auto) 600 (0-900) /uL Eos # (Auto) 100 (0-450) /uL Baso # (Auto) 0 (0-100) /uL PT (10.1-12.7) SECONDS INR (0.9-1.3) APTT 31 (26.4-36.2) SECONDS Sodium 135 L (137-145) mmol/L Potassium 4.4 (3.4-5.1) mmol/L Chloride 101 (98-107) mmol/L Carbon Dioxide 24 (22-32) mmol/L BUN 31 H (7-17) mg/dL Creatinine 1.17 H (0.52-1.04) mg/dL Estimated GFR 46.0 L (>60) mL/min BUN/Creatinine Ratio 26.5 H (6-22) Glucose 82 (80-110) mg/dL Calcium 9.7 (8.4-10.2) mg/dL Total Bilirubin 0.6 (0.2-1.3) mg/dL AST 31 (14-36) IU/L ALT 19 (<35) IU/L Alkaline Phosphatase 114 (38-126) U/L Total Protein 7.4 (6.3-8.2) g/dL Albumin 4.5 (3.5-5.0) g/dL Globulin 2.9 (1.7-4.1) g/dL Albumin/Globulin Ratio 1.6 (1.0-2.8) // Range/Units 12:12 WBC (4.5-11.0) X10^3/uL RBC (4.0-5.2) X10^6/uL Hgb (12.0-16.0) g/dL Hct (36-46) % MCV (80-100) fL MCH (26-34) PG MCHC (30-36) % RDW (11.6-14.8) % Plt Count (150-400) X10^3/uL Neut % (Auto) (50-75) % Lymph % (Auto) (25-40) % [place] % (Auto) (3-14) % Eos % (Auto) (2-4) % Baso % (Auto) (0-2) % Neut # (Auto) (9454-1790) /uL Lymph # (Auto) (6474-7641) /uL [place] # (Auto) (0-900) /uL Eos # (Auto) (0-450) /uL Baso # (Auto) (0-100) /uL PT 10.7 (10.1-12.7) SECONDS INR 0.9 (0.9-1.3) APTT (26.4-36.2) SECONDS Sodium (137-145) mmol/L Potassium (3.4-5.1) mmol/L Chloride (98-107) mmol/L Carbon Dioxide (22-32) mmol/L BUN (7-17) mg/dL Creatinine (0.52-1.04) mg/dL Estimated GFR (>60) mL/min BUN/Creatinine Ratio (6-22) Glucose (80-110) mg/dL Calcium (8.4-10.2) mg/dL Total Bilirubin (0.2-1.3) mg/dL AST (14-36) IU/L ALT (<35) IU/L Alkaline Phosphatase (38-126) U/L Total Protein (6.3-8.2) g/dL Albumin (3.5-5.0) g/dL Globulin (1.7-4.1) g/dL Albumin/Globulin Ratio (1.0-2.8) ECG Data Attestation: I personally reviewed and interpreted this ECG as follows: Prior ECG tracings: available for review Interpretation: Sinus bradycardia rate at 54. Normal [place]. ND int 167, QRS dur 102, QT/QTC 426/411. No ST elevation or depression. Previous EKG in normal sinus rhythm. MDM Narrative Medical decision making narrative: This is a 69-year-old female who initially injured from a fall about 18 days ago and had initial femur/pelvis x-ray done 10 days ago which read as negative findings for fracture. Patient has been having progressive worsening pain on right groin and difficulty with ambulation using 2 canes. Patient traveled recently to [place] and she was evaluated in ED with repeat x-ray and CT test secondary to severe pain on right groin and difficulty with ambulation. Then x-ray and CT test indicated nondisplaced fracture of the proximal most portion of the right femoral neck and suggested with surgical repair which patient elected to come home and proceed with this. Patient brought in CD with x-ray and CT imaging which she was uploaded to our PACS system along the written report. H&H is stable. Patient has mild hyponatremia of 135, BUN of 31, creatinine of 1.17 with GFR of 46 which is near her baseline kidney function in the past. Last p.o. intake of solid food at 3:[address] Landeros was consulted at 1:35 p.m. and he kindly accepted patient's consult and for surgical candidate. Dr. Edwards was contacted and he kindly accepted patient's care under medical secondary to patient's chronic medical conditions such as hyperlipidemia, diabetes type 2, left by blood pressure, stage 3 kidney disease, non sustained AFib/V-tach. Medicated patient with Dilaudid and Zofran for pain management and informed patient on pending ad mission to hospital. Patient informed the above plan and agrees with treatment plan. <Renny Davidan, DO - Last Filed: 08/07/19 07:59> Lab Data Labs: Lab Results 08/06/19 08/06/19 08/06/19 Range/Units 12:12 12:12 12:12 WBC 7.8 (4.5-11.0) X10^3/uL RBC 4.09 (4.0-5.2) X10^6/uL Hgb 12.1 (12.0-16.0) g/dL Hct 37.2 (36-46) % MCV 90.9 (80-100) fL MCH 29.7 (26-34) PG MCHC 32.7 (30-36) % RDW 15.2 H (11.6-14.8) % Plt Count 190 (150-400) X10^3/uL Neut % (Auto) 76.9 H (50-75) % Lymph % (Auto) 13.7 L (25-40) % [place] % (Auto) 7.5 (3-14) % Eos % (Auto) 1.6 L (2-4) % Baso % (Auto) 0.3 (0-2) % Neut # (Auto) 6000 (3059-9563) /uL Lymph # (Auto) 1100 (1082-8687) /uL [place] # (Auto) 600 (0-900) /uL Eos # (Auto) 100 (0-450) /uL Baso # (Auto) 0 (0-100) /uL PT (10.1-12.7) SECONDS INR (0.9-1.3) APTT 31 (26.4-36.2) SECONDS Sodium 135 L (137-145) mmol/L Potassium 4.4 (3.4-5.1) mmol/L Chloride 101 (98-107) mmol/L Carbon Dioxide 24 (22-32) mmol/L BUN 31 H (7-17) mg/dL Creatinine 1.17 H (0.52-1.04) mg/dL Estimated GFR 46.0 L (>60) mL/min BUN/Creatinine Ratio 26.5 H (6-22) Glucose 82 (80-110) mg/dL Calcium 9.7 (8.4-10.2) mg/dL Total Bilirubin 0.6 (0.2-1.3) mg/dL AST 31 (14-36) IU/L ALT 19 (<35) IU/L Alkaline Phosphatase 114 (38-126) U/L Total Protein 7.4 (6.3-8.2) g/dL Albumin 4.5 (3.5-5.0) g/dL Globulin 2.9 (1.7-4.1) g/dL Albumin/Globulin Ratio 1.6 (1.0-2.8) 08/06/19 Range/Units 12:12 WBC (4.5-11.0) X10^3/uL RBC (4.0-5.2) X10^6/uL Hgb (12.0-16.0) g/dL Hct (36-46) % MCV (80-100) fL MCH (26-34) PG MCHC (30-36) % RDW (11.6-14.8) % Plt Count (150-400) X10^3/uL Neut % (Auto) (50-75) % Lymph % (Auto) (25-40) % [place] % (Auto) (3-14) % Eos % (Auto) (2-4) % Baso % (Auto) (0-2) % Neut # (Auto) (5616-0901) /uL Lymph # (Auto) (9823-2965) /uL [place] # (Auto) (0-900) /uL Eos # (Auto) (0-450) /uL Baso # (Auto) (0-100) /uL PT 10.7 (10.1-12.7) SECONDS INR 0.9 (0.9-1.3) APTT (26.4-36.2) SECONDS Sodium (137-145) mmol/L Potassium (3.4-5.1) mmol/L Chloride (98-107) mmol/L Carbon Dioxide (22-32) mmol/L BUN (7-17) mg/dL Creatinine (0.52-1.04) mg/dL Estimated GFR (>60) mL/min BUN/Creatinine Ratio (6-22) Glucose (80-110) mg/dL Calcium (8.4-10.2) mg/dL Total Bilirubin (0.2-1.3) mg/dL AST (14-36) IU/L ALT (<35) IU/L Alkaline Phosphatase (38-126) U/L Total Protein (6.3-8.2) g/dL Albumin (3.5-5.0) g/dL Globulin (1.7-4.1) g/dL Albumin/Globulin Ratio (1.0-2.8) Discharge Plan Departure Patient Disposition: Admitted As Inpatient Clinical Impression: Nondisplaced fracture of neck of right femur Discharge Date/Time: 08/06/19 14:22 Admit Date/Time: 08/06/19 13:41 Admit Provider: Aleksey Landeros ED Sign-out <DEMETRI Syed - Last Filed: 08/06/19 15:59> Cosign ED Attending Duncan Attestation: I was immediately available in the department for consultation. This documentation has been reviewed and I agree with assessment and plan. Supervised by DEMETRI Syed <Renny Dillon DO - Last Filed: 08/07/19 07:59> Cosign ED Attending Duncan Attestation: I was immediately available in the department for consultation. This documentation has been reviewed and I agree with assessment and plan. Supervised by Renny Dillon DO
[2019-08-06] MEDS: ONDANSETRON 4 MG/2 ML INJ IV (13:27)
[2019-08-06] MEDS: HYDROMORPHONE 0.5 MG INJ IV (13:27)
[2019-08-06] MEDS: LACTATED RINGERS 1,000 ML 42 ML IV (14:07)
--- NOTE | 2019-08-06 14:22 | P.HP_ITS ---
History of Present Illness History of Present Illness Date Patient Seen: 08/06/19 Time Patient Seen: 14:22 Chief complaint: glf/ Narrative: 69-year-old female with right hip pain and fracture. She fell approximately 3 weeks ago in her garage. Ground level fall. No prodromal shortness of breath or chest pain or dizziness. She does have a history of spinal stenosis which makes her legs somewhat weaker. She did not hit her head or lose consciousness. She had significant pain into the right groin and has been getting around with 2 canes. She had to fly to [place]. The pain was bad enough that she finally went into the emergency room [address] scan was performed which showed a nondisplaced femoral neck fracture on the right. They had recommended surgery but she had to get home to get this done and presented to the ER today when they arrived home. Pain is all in the right groin. Comfortable at rest. Sharp and stabbing with any weight-bearing or motion. She has not eaten today. She has a longstanding history of peripheral neuropathy in the feet. 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 She does have a history of atrial fibrillation and V-tach but only takes aspirin for this. She has a loop monitor implanted. Patient History Medical History Anemia (Acute) Asthma (Acute) Chronic kidney disease, stage 3 (Acute) DVT (deep venous thrombosis) (Acute) Gastroesophageal reflux disease (Acute) HTN (hypertension) (Acute) Hyperlipidemia (Acute) Hypoglycemia (Acute) Right femoral fracture (Acute) Ventricular tachycardia (Acute) Surgical History H/O hysterectomy for benign disease (Acute) Family & Social History Family History Mother Breast cancer Aortic aneurysm Sister Breast cancer Grandmother Diabetes mellitus Social History: household members spouse,other Safety & Behavioral: Feels Safe in Current Yes Environment Been Physically Hurt or No Threatened By a Person Tobacco & Substance use: Smoking Status Never smoker alcohol intake frequency other Substance Use Type does not use Meds Home Medications and Allergies Home Medications Medication Instructions Recorded Confirmed Type albuterol sulfate 1 puff INHALATION PRN PRN 11/13/17 04/03/19 History celecoxib 1 cap PO BID 11/13/17 04/03/19 History escitalopram oxalate 20 mg PO DAILY 11/13/17 04/03/19 History olmesartan 10 mg PO BID 11/13/17 04/03/19 History omeprazole 40 mg PO DAILY 11/13/17 04/03/19 History pitavastatin calcium 4 mg PO DAILY 11/13/17 04/03/19 History promethazine 25 mg PO AC 11/13/17 04/03/19 History tizanidine 1 cap PO QID 11/13/17 04/03/19 History Allergies Allergy/AdvReac Type Severity Reaction Status Date / Time duloxetine [From Cymbalta] Allergy Numbness Verified 08/06/19 11:59 iodine Allergy Verified 08/06/19 11:59 Penicillins Allergy Verified 08/06/19 11:59 pregabalin [From Lyrica] Allergy Hallucinati Verified 08/06/19 11:59 ng Sulfa (Sulfonamide Allergy Verified 08/06/19 11:59 Antibiotics) Review of Systems Constitutional Constitutional: Denies chills, Denies fever(s) and Reports frequent falls Cardiovascular Cardiovascular: Denies chest pain with activity Respiratory Respiratory: Denies pain on inspiration and Denies wheezing Gastrointestinal Gastrointestinal: Denies abdominal pain Genitourinary Genitourinary: Denies urinary frequency Musculoskeletal Musculoskeletal: Reports numbness Integumentary/Breasts Skin/Breast: Denies rash Neurologic Neurologic: Reports frequent falls and Reports numbness Psychiatric Psychiatric: Denies anxiety Endocrine Endocrine: Denies flushing Hematologic/Lymphatic Hematologic/Lymphatic: Denies easy bleeding Allergic/Immunologic Allergic/Immunologic: Denies wheezing Exam Vital Signs (past 8 hours): - 08/06/19 11:55 Temperature 98.6 F Pulse Rate 66 Respiratory Rate 14 Blood Pressure 149/94 H Pulse Oximetry 99 Oxygen Delivery Method Room Air Const Orientation: alert and oriented x3 Resp Auscultation: clear to auscultation bilaterally Cardio Rate: regular rate Rhythm: regular rhythm GI Palpation: soft Extrem Other: Right hip pain with logroll and attempt at hip flexion. Nontender over the greater trochanter. Intact integument over the hip. 1+ distal pulse. Decreased sensation globally in the feet. Full strength in ankle and toe flexion and extension. Objective Imaging CT scan of pelvis: My impression: Performed on 08/03/2020 in [place]. This shows a nondisplaced high femoral neck fracture on the right hip Labs Result Diagrams: 08/06/19 12:12 08/06/19 12:12 Labs: Laboratory Results - last 24 hr 08/06/19 08/06/19 08/06/19 12:12 12:12 12:12 WBC 7.8 RBC 4.09 Hgb 12.1 Hct 37.2 MCV 90.9 MCH 29.7 MCHC 32.7 RDW 15.2 H Plt Count 190 Neut % (Auto) 76.9 H Lymph % (Auto) 13.7 L [place] % (Auto) 7.5 Eos % (Auto) 1.6 L Baso % (Auto) 0.3 Neut # (Auto) 6000 Lymph # (Auto) 1100 [place] # (Auto) 600 Eos # (Auto) 100 Baso # (Auto) 0 PT INR APTT 31 Sodium 135 L Potassium 4.4 Chloride 101 Carbon Dioxide 24 BUN 31 H Creatinine 1.17 H Estimated GFR 46.0 L BUN/Creatinine Ratio 26.5 H Glucose 82 Calcium 9.7 Total Bilirubin 0.6 AST 31 ALT 19 Alkaline Phosphatase 114 Total Protein 7.4 Albumin 4.5 Globulin 2.9 Albumin/Globulin Ratio 1.6 08/06/19 12:12 WBC RBC Hgb Hct MCV MCH MCHC RDW Plt Count Neut % (Auto) Lymph % (Auto) [place] % (Auto) Eos % (Auto) Baso % (Auto) Neut # (Auto) Lymph # (Auto) [place] # (Auto) Eos # (Auto) Baso # (Auto) PT 10.7 INR 0.9 APTT Sodium Potassium Chloride Carbon Dioxide BUN Creatinine Estimated GFR BUN/Creatinine Ratio Glucose Calcium Total Bilirubin AST ALT Alkaline Phosphatase Total Protein Albumin Globulin Albumin/Globulin Ratio Assessment & Plan Assessment & Plan narrative: Nondisplaced right femoral neck fracture. I recommend percutaneous screw fixation of the right hip for stability. She should be fine for weight bear as tolerated afterwards. I explained the reason for surgery is to stabilize the fracture so that if she were to fall there would be a low risk of this displacing and needing an actual hemiarthroplasty surgery. Without it, she would be high risk for this. Risks and benefits of surgery were discussed including not limited to medical risk with heart attack, stroke, , DVT, PE, infection, bleeding, scarring, nonunion, failure to alleviate symptoms, need for further surgery. I anticipate her being in the hospital for 2 days then hopefully going home as she has been walking on this already prior to surgery. We will use SCDs now and can use Lovenox tomorrow. All questions have been answered and we will proceed with surgery.
--- NOTE | 2019-08-06 14:31 | PM.PREOP ---
Pre-operative Note Interval Note History & Physical reviewed/Exam performed by Physician: Yes Changes to H&P: No
[2019-08-06] MEDS: CLINDAMYCIN 900 MG/50 ML PIGGYBACK 50 MG IV ×2 (14:35→18:11)
--- NOTE | 2019-08-06 15:15 | SUR.OPER ---
Supine on padded [place] table with bilateral legs secured in padded positioning boots and suspended in positioning spars, operative leg in traction per surgeon. Head on one pillow. Arm on non-operative side secured on padded armboard <90 degrees abduction. Arm on operative side padded and resting across chest then secured with tape over sheet. Padded perineal post in place per surgeon.
--- NOTE | 2019-08-06 15:36 | PM.OP.1 ---
Operative Date/Time/Diagnoses Date of procedure: 08/06/19 Time of procedure: 15:36 Pre-op diagnosis: Right hip femoral neck fracture nondisplaced Post-op diagnosis: same Procedure & Clinicians Procedure: Percutaneous screw fixation of right hip femoral neck fracture Same procedure as scheduled: Yes Indications: 69-year-old female with a nondisplaced femoral neck fracture. His felt that she would benefit from operative stabilization. Risks and benefits of surgery discussed and appropriate consent obtained. Surgeon: Aleksey Landeros Click Yes if Unassisted: Yes Anesthesia Type: General Operative Notes Findings: None Closure Type: primary Specimen(s): none sent Prosthetic devices, grafts, tissues, transplants, or devices: synthes 7.3mm cannulated screws Applied: catheter Estimated Blood Loss (mL): 5 Blood products transfused: none Procedure in detail: Patient was brought to the operating room and spinal anesthetic was initiated. Time-out was performed. Preoperative antibiotics were given. Attention was turned towards well-marked right hip. They were positioned on the fracture table and fracture alignment was confirmed under x-ray. The right hip was then prepped and draped in the standard sterile fashion. Using fluoroscopy, a 2 cm longitudinal incision was made over the femur. Three percutaneous guidewires were placed up the femoral neck into the femoral head with a freehand technique under fluoroscopic guidance. They were measured drilled and appropriate length screws were placed. Final x-rays were taken. The wound was irrigated. Superficial skin were closed. Sterile dressing was placed. The patient was then transferred to the stretcher and brought to recovery with no complications. Complications: none Post-operative Condition: stable Disposition: PACU Plan for aftercare: Weight bear as tolerated inpatient for 1-2 days. Anticipate return home as she was ambulating prior to to surgery.
[2019-08-06] MEDS: OXYCODONE/ACETAMINOPHEN 5/325 TABLET 1 TAB PO ×2 (16:19→16:55)
[2019-08-06] MEDS: HYDROMORPHONE 2 MG INJ IV (16:22)
--- NOTE | 2019-08-06 16:39 | SUR.PHASEI ---
Stable PACU stay, medicated with Dilaudid and percocet. Stayed in PACU for monitoring post narcotic injection.
--- NOTE | 2019-08-06 17:32 | SUR.PHASEI ---
Pt transported up to room 216 and left in stable condition.
[2019-08-06] MEDS: PROMETHAZINE 25 MG TABLET PO (18:11)
--- NOTE | 2019-08-06 18:20 | PM.CN ---
History of Present Illness Consult details Date Patient Seen: 08/06/19 Time Patient Seen: 18:00 Chief complaint: glf/ Reason for consult: medical management Requesting provider: Aleksey Landeros Narrative: Patient is a 69-year-old female admitted to [facility] for right femoral neck fracture. She has been walking on it for about 3 weeks since she had her ground level fall. She had x-rays done after her fall which did not show the fracture. She then flew to [place] and over there had worsening pain on weight-bearing, when to ER over there and CT was done which showed the fracture. Patient has history of hypertension. She has history of ventricular tachycardia. 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 It seems she has done well off of the metoprolol. She has history of distal femur fracture and bilateral knee prosthesis. Last year she had major lumbar surgery at [facility]. Later she required another surgery when, as patient states, during physical therapy a screw got dislodged from her distal femur and went through her prosthetic knee. She states she has plate fixation above and below the knee. All this was done at [facility]. Patient was admitted with acute pyelonephritis and sepsis in March last year. Hospital course was complicated by mild delirium. She currently denies any fever, chills or urinary symptoms. Meds Home Medications and Allergies Home Medications Medication Instructions Recorded Confirmed Type albuterol sulfate 1 puff INHALATION PRN PRN 11/13/17 04/03/19 History celecoxib 1 cap PO BID 11/13/17 04/03/19 History escitalopram oxalate 20 mg PO DAILY 11/13/17 04/03/19 History olmesartan 10 mg PO BID 11/13/17 04/03/19 History omeprazole 40 mg PO DAILY 11/13/17 04/03/19 History pitavastatin calcium 4 mg PO DAILY 11/13/17 04/03/19 History promethazine 25 mg PO AC 11/13/17 04/03/19 History tizanidine 1 cap PO QID 11/13/17 04/03/19 History Allergies Allergy/AdvReac Type Severity Reaction Status Date / Time duloxetine [From Cymbalta] Allergy Numbness Verified 08/06/19 11:59 iodine Allergy Verified 08/06/19 11:59 Penicillins Allergy Verified 08/06/19 11:59 pregabalin [From Lyrica] Allergy Hallucinati Verified 08/06/19 11:59 ng Sulfa (Sulfonamide Allergy Verified 08/06/19 11:59 Antibiotics) Review of Systems Review of Systems ROS: Yes All systems reviewed with the patient and are negative except as otherwise documented Exam Vital Signs (past 8 hours): - 08/06/19 11:55 08/06/19 14:22 08/06/19 15:36 Temperature 98.6 F 98.4 F Pulse Rate 66 65 102 H Respiratory Rate 14 20 10 L Blood Pressure 149/94 H 149/94 H 121/66 Pulse Oximetry 99 99 99 08/06/19 15:40 08/06/19 15:46 08/06/19 15:51 Temperature Pulse Rate 99 H 96 H 93 H Respiratory Rate 18 10 L 18 Blood Pressure 126/74 130/73 131/74 Pulse Oximetry 98 99 99 08/06/19 15:56 08/06/19 16:11 08/06/19 16:21 Temperature Pulse Rate 97 H 98 H 92 H Respiratory Rate 11 L 14 11 L Blood Pressure 115/55 L 122/52 L 135/64 Pulse Oximetry 99 99 98 08/06/19 16:41 08/06/19 16:56 08/06/19 17:15 Temperature 98.5 F 98.7 F Pulse Rate 93 H 91 H 91 H Respiratory Rate 15 12 17 Blood Pressure 122/64 123/65 124/66 Pulse Oximetry 98 100 100 08/06/19 17:45 08/06/19 18:15 Temperature 99.4 F 99.7 F H Pulse Rate 87 114 H Respiratory Rate 18 18 Blood Pressure 127/64 110/58 L Pulse Oximetry 97 Oxygen Delivery Method Room Air Oxygen Flow Rate 0 Narrative Exam Narrative: General: Alert and very pleasant female in no acute distress seen postop Lungs: Clear to auscultation Heart: Regular rhythm Abdomen: Soft and nontender Extremities: No distal edema Neurological: Affect normal, appears well oriented, nonfocal Objective Labs Result Diagrams: 08/06/19 12:12 08/06/19 12:12 Labs: Laboratory Results - last 24 hr 08/06/19 08/06/19 08/06/19 12:12 12:12 12:12 WBC 7.8 RBC 4.09 Hgb 12.1 Hct 37.2 MCV 90.9 MCH 29.7 MCHC 32.7 RDW 15.2 H Plt Count 190 Neut % (Auto) 76.9 H Lymph % (Auto) 13.7 L [place] % (Auto) 7.5 Eos % (Auto) 1.6 L Baso % (Auto) 0.3 Neut # (Auto) 6000 Lymph # (Auto) 1100 [place] # (Auto) 600 Eos # (Auto) 100 Baso # (Auto) 0 PT INR APTT 31 Sodium 135 L Potassium 4.4 Chloride 101 Carbon Dioxide 24 BUN 31 H Creatinine 1.17 H Estimated GFR 46.0 L BUN/Creatinine Ratio 26.5 H Glucose 82 Calcium 9.7 Total Bilirubin 0.6 AST 31 ALT 19 Alkaline Phosphatase 114 Total Protein 7.4 Albumin 4.5 Globulin 2.9 Albumin/Globulin Ratio 1.6 08/06/19 12:12 WBC RBC Hgb Hct MCV MCH MCHC RDW Plt Count Neut % (Auto) Lymph % (Auto) [place] % (Auto) Eos % (Auto) Baso % (Auto) Neut # (Auto) Lymph # (Auto) [place] # (Auto) Eos # (Auto) Baso # (Auto) PT 10.7 INR 0.9 APTT Sodium Potassium Chloride Carbon Dioxide BUN Creatinine Estimated GFR BUN/Creatinine Ratio Glucose Calcium Total Bilirubin AST ALT Alkaline Phosphatase Total Protein Albumin Globulin Albumin/Globulin Ratio Assessment & Plan Assessment & Plan narrative: 1. Right femoral neck fracture, present on admission, active -status post ORIF with Dr. Aleksey Landeros -patient appears stable postop -PT eval and treat in a.m. 2. Hypertension, stable -hold patient's olmesartan for this evening to reduce risk of postop hypotension, resume BP medication in the morning 3. GERD, stable -continue patient's proton pump inhibitor 4. Asthma, stable -continue albuterol MDI as needed
[2019-08-06] MEDS: DOCUSATE 100 MG CAPSULE PO (20:34)
[2019-08-06] MEDS: CELECOXIB 200 MG CAPSULE PO (20:34)
[2019-08-06] MEDS: SIMVASTATIN 40 MG TABLET PO (20:34)
[2019-08-06] MEDS: SODIUM CHLORIDE 0.9% 1,000 ML 84 ML IV (20:34)
[2019-08-06] MEDS: MAGNESIUM HYDROXIDE 30 ML UDC PO (20:34)
[2019-08-06] MEDS: HYDROMORPHONE 2 MG TABLET PO (20:35)
--- NOTE | 2019-08-06 21:16 | PC.NURSE ---
Addendum entered by Marii Miller R.N. 08/06/19 21:25: Dr. Edwards at bedside, updating regarding plan of care. Original Note: Nehal shift note: Patient awake, alert, and pleasant. Received from PACU, VSS upon arrival. O2 sat 96% on RA. SCDs in place, CMS intact to RLE, 3+ strength. Oriented to room, environment and plan of care. High fall risk precautions initiated, call light within reach.
[2019-08-06 21:59] LABS: Hematocrit 33.9 % (36-46); Hemoglobin 11.1 g/dL (12.0-16.0)
[2019-08-07 00:15] VITALS: BP 109/58; PULSE 84; RESP 15; TEMP 37.1; O2SAT 97
[2019-08-07] MEDS: CLINDAMYCIN 900 MG/50 ML PIGGYBACK 50 MG IV ×2 (02:05→09:59)
[2019-08-07] MEDS: HYDROMORPHONE 2 MG TABLET PO ×2 (05:10→08:37)
[2019-08-07] MEDS: PANTOPRAZOLE 40 MG TABLET PO (05:12)
--- NOTE | 2019-08-07 05:21 | PC.NURSE ---
Patient is alert and oriented and VSS.Patient has been having pain 5/10, 2mg Dilaudid Q3 given PRN, denies nausea. CMS is intact, dressing clean/dry/intact. Patient is able to move and re-adjust herself. Patient is wearing SCD's and encouraged to use IS. Bed is low and locked, call light within reach, bed alarm activated.
[2019-08-07 05:30] VITALS: BP 119/64; PULSE 72; RESP 15; TEMP 37; O2SAT 97
[2019-08-07 06:03] LABS: Hematocrit 31.7 % (36-46); Hemoglobin 10.5 g/dL (12.0-16.0); Mean Corpuscular HGB Conc 33.1 % (30-36); Mean Corpuscular Hemoglobin 29.7 PG (26-34); Mean Corpuscular Volume 89.8 fL (80-100); Platelet Count 182 X10^3/uL (150-400); Red Blood Cell Count 3.53 X10^6/uL (4.0-5.2); Red Cell Distribution Width 15.3 % (11.6-14.8); White Blood Cell Count 5.9 X10^3/uL (4.5-11.0)
[2019-08-07 08:00] VITALS: BP 126/74; PULSE 80; RESP 16; TEMP 38.2; O2SAT 98
[2019-08-07] MEDS: ENOXAPARIN 30 MG/0.3 ML SYRINGE SUBCUT (08:15)
[2019-08-07] MEDS: DOCUSATE 100 MG CAPSULE PO (08:15)
[2019-08-07] MEDS: CELECOXIB 200 MG CAPSULE PO (08:15)
[2019-08-07] MEDS: PROMETHAZINE 25 MG TABLET PO (08:15)
[2019-08-07] MEDS: ESCITALOPRAM 10 MG TABLET 20 MG PO (08:36)
[2019-08-07] MEDS: OLMESARTAN 5 MG TABLET 10 MG PO (08:37)
--- NOTE | 2019-08-07 09:21 | P.PN_ITS ---
Subjective Subjective Date Patient Seen: 08/07/19 Time Patient Seen: 09:22 Interval history: She is doing better. Less pain. She feels like she can move her leg easier. Exam Vital Signs (past 8 hours): - 08/07/19 05:30 08/07/19 08:00 Temperature 98.6 F 100.7 F H Pulse Rate 72 80 Respiratory Rate 15 16 Blood Pressure 119/64 126/74 Pulse Oximetry 97 98 Oxygen Delivery Method Room Air Oxygen Flow Rate 0 Const Orientation: alert and oriented x3 Extrem Other: Right hip minimal dry drainage. Comfortable log roll. Can flex her hip with some pain but better than yesterday. Soft calf easily wiggles toes. Objective Labs Result Diagrams: 08/07/19 05:47 08/06/19 12:12 Labs: Laboratory Results - last 24 hr 08/06/19 08/06/19 08/06/19 12:12 12:12 12:12 WBC 7.8 RBC 4.09 Hgb 12.1 Hct 37.2 MCV 90.9 MCH 29.7 MCHC 32.7 RDW 15.2 H Plt Count 190 Neut % (Auto) 76.9 H Lymph % (Auto) 13.7 L [place] % (Auto) 7.5 Eos % (Auto) 1.6 L Baso % (Auto) 0.3 Neut # (Auto) 6000 Lymph # (Auto) 1100 [place] # (Auto) 600 Eos # (Auto) 100 Baso # (Auto) 0 PT INR APTT 31 Sodium 135 L Potassium 4.4 Chloride 101 Carbon Dioxide 24 BUN 31 H Creatinine 1.17 H Estimated GFR 46.0 L BUN/Creatinine Ratio 26.5 H Glucose 82 Calcium 9.7 Total Bilirubin 0.6 AST 31 ALT 19 Alkaline Phosphatase 114 Total Protein 7.4 Albumin 4.5 Globulin 2.9 Albumin/Globulin Ratio 1.6 08/06/19 08/06/19 08/07/19 12:12 21:42 05:47 WBC 5.9 RBC 3.53 L Hgb 11.1 L 10.5 L Hct 33.9 L 31.7 L MCV 89.8 MCH 29.7 MCHC 33.1 RDW 15.3 H Plt Count 182 Neut % (Auto) Lymph % (Auto) [place] % (Auto) Eos % (Auto) Baso % (Auto) Neut # (Auto) Lymph # (Auto) [place] # (Auto) Eos # (Auto) Baso # (Auto) PT 10.7 INR 0.9 APTT Sodium Potassium Chloride Carbon Dioxide BUN Creatinine Estimated GFR BUN/Creatinine Ratio Glucose Calcium Total Bilirubin AST ALT Alkaline Phosphatase Total Protein Albumin Globulin Albumin/Globulin Ratio Assessment & Plan Post-op Postoperative Procedures: Procedures Operation Date: 08/06/19 13:55 Actual Procedures Side Surgeon p ORIF Hip/Cannulated Screws Aleksey Landeros MD she is doing very well. Plan to get her up with physical therapy today weight bear as tolerated. She had been walking on this broken hip for 3 weeks prior to her surgery. I think she is going to be fine to continue walking on it. If she does well, she could certainly discharge home today or tomorrow.
--- NOTE | 2019-08-07 10:47 | PT.IIE ---
Surgery Performed Operation Date: 08/06/19 13:55 Actual Procedures p ORIF Hip/Cannulated Screws - Aleksey Landeros MD Surgical History (Last Reviewed 08/06/19 @ 14:25 by Aleksey Landeros MD) H/O hysterectomy for benign disease (Acute) Medical History (Last Reviewed 08/06/19 @ 14:25 by Aleksey Landeros MD) Anemia (Acute) Asthma (Acute) Chronic kidney disease, stage 3 (Acute) DVT (deep venous thrombosis) (Acute) Gastroesophageal reflux disease (Acute) HTN (hypertension) (Acute) Hyperlipidemia (Acute) Hypoglycemia (Acute) Right femoral fracture (Acute) Ventricular tachycardia (Acute) Physical Therapy Inpatient Evaluation/Re-Eval M1 PT/OT-IP Prior Functional Status Start: 08/07/19 08:49 Freq: NEEDED Status: Active Protocol: Document 08/07/19 10:28 AW (Rec: 08/07/19 10:47 AW [email or web address]) Medical Review Prior Functional Status Medical History Reviewed Yes Diet/Fluid Consistency Regular Communication WNL. Pt is an effective verbal communicator Mobility and Gait Independent without assistive device. Pt has had three injurious falls in the past year and three orthopedic surgeries. She fell 19 days ago and had increasing right hip pain over that time. She resorted to using one and then two canes but the pain became unbearable, leading to her presentation at ED 08/06/19. Activities of Daily Living and IADL's Independent with all. Social History Household Members spouse,other Living Arrangements House Number of Floors (Floors) One Floor Number of Stairs To Enter/Railing? 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 Her is available and able to assist as needed. M2 PT-IP Current Condition Start: 08/07/19 08:49 Freq: NEEDED Status: Active Protocol: Document 08/07/19 10:28 AW (Rec: 08/07/19 10:47 AW [email or web address]) Physical Therapy Current Condition Current Condition Evaluation Date 08/07/19 Treatment Diagnosis R femoral neck fx s/p perc screw fixation; impaired mobility Onset Date 07/19/19 Weight Bearing Status Weight Bearing Status Weight Bear as Tolerated M3 PT-IP Subjective Start: 08/07/19 08:49 Freq: NEEDED Status: Active Protocol: Document 08/07/19 10:28 AW (Rec: 08/07/19 10:47 AW [email or web address]) Subjective Physical Therapy Visit Type Type Initial Evaluation Visit Start Time 09:27 Visit Stop Time 09:53 Total Visit Minutes 26 Physical Therapy Visit Comments Patient Comments Pt is willing to mobilize with PT Patient Goals To go home today Therapy Pain Assessment Pain When Pain Assessed During Mobility Pain Present Pain Present Pain Reported Location Right Hip Intensity 6 Scale Used Numeric (1 - 10) Pain Management Techniques Timing of Activity with Medications M4 PT-IP Mobility and Gait Start: 08/07/19 08:49 Freq: NEEDED Status: Active Protocol: Document 08/07/19 10:28 AW (Rec: 08/07/19 10:47 AW [email or web address]) PT-Bed Mobility Assessment Rolling Level of Assist Contact Guard Assistance,1 Person Assistance Supine to Sit Supine to Sit Standby Assistance,1 Person Assistance,Head of Bed Elevated Scooting Scooting to Edge of Bed Standby Assistance PT-Transfer Assessment Sit to and From Stand Sit to and from Stand Standby Assistance,Use of Upper Extremities Equipment Transfer Assistive Device Gait Belt,Front Wheeled Walker Orthotic/Prosthetic Devices or Brace: No Transfers Transfer Destination Chair Transfer Technique amb with fww Transfer Ability Level of Assist Standby Assistance Comments Mobility Comments Pt has an adjustable bed at home, so she completed supine to sit with HOB elevated and CGA for support of her operative leg. She sat EOB with and without UE support, able to maintain midline easily. She stood using FWW SBA and walked in the halls for gait assessment. Upon return to the room, she transferred to the chair SBA with minimal need for cues. Gait Assessment Gait Gait Assistance Required: Standby Assistance Distance (Feet) 150 Able to Maintain Weight Bearing Status Yes During Gait Assistive Devices Assistive Device Gait Belt,Front Wheeled Walker Orthotic/Prosthetic Devices or Brace: No Gait Deviations General Gait Pattern Antalgic,Decreased Stride Length,Decreased Feet Clearance,Step-to Gait Factors Limiting Gait Function Factors Limiting Gait Function Decreased Sensation,Decreased Strength,Pain Comments Gait Comments Pt ambulated 150 feet with FWW SBA. She demonstrated good attention to postural mechanics during gait and used the FWW safely. Stair Climbing Assessment Comments Stair Climbing Comments Not assessed. Pt's home has ramped entry. PT-Balance Assessment Sitting Balance and Reactions Static Sitting Balance Ability Normal Dynamic Sitting Balance Ability Normal Standing Balance and Reactions Static Standing Balance Ability Good Dynamic Standing Balance Ability Good Device Used FWW M5 PT-IP Objective Assessments Start: 08/07/19 08:49 Freq: NEEDED Status: Active Protocol: Document 08/07/19 10:28 AW (Rec: 08/07/19 10:47 AW [email or web address]) Orientation Orientation/Cognition Level of Alertness Alert Orientation Name,Day of Week,Place, Situation Language Function Ability No Deficits Noted Safety Awareness Understands Safety Issues Memory Description No Deficits Noted Gross Range of Motion Lower Extremity ROM Assessment Right Impaired Strength Lower Extremity Strength Assessment Right Impaired Comments Strength Comments LLE grossly 4/5 Coordination Assessment Gross Coordination Gross Coordination WNL Sensation Assessment Sensation Gross Sensation Right LE Impaired,Left LE Impaired Comments Sensation Comments Peripheral neuropathy affects bilateral feet - numbness and tingling. Muscle Tone Muscle Tone WNL Yes M6 PT-IP Treatment Start: 08/07/19 08:49 Freq: NEEDED Status: Active Protocol: Document 08/07/19 10:28 AW (Rec: 08/07/19 10:47 AW [email or web address]) Physical Therapy Treatment Exercises Exercises Ankle Pumps,Gluteal Sets,Quad Sets,Heel Slides Education Education Provided Precautions,Weight Bearing Status,Post-Op Packet,Safety Other Treatments Other Treatment Performed Provided education on role of PT, plan of care, weightbearing status, and safe use of FWW. M7 PT-IP Assessment and Plan Start: 08/07/19 08:49 Freq: NEEDED Status: Active Protocol: Document 08/07/19 10:28 AW (Rec: 08/07/19 10:47 AW [email or web address]) PT Summary Assessment and Plan Potential Rehabilitation Potential Excellent Status of Condition at Evaluation Stable Summary Impairments Pain,ROM,Strength,Sensation, Bed Mobility,Transfers,Gait Assessment Summary Ryanne is a 69yo woman seen for PT evaluation on POD1 following percutaneous screw fixation of right femoral neck fracture treated 18 days after an injurious fall. At baseline, she ambulates independently but has suffered at least three injurious falls in the past year. On evaluation, she required CGA for bed mobility and SBA for all other mobilities. She moves slowly and safely. With her spouse to assist, pt will be safe to discharge home with outpatient PT in order to address balance impairments and to reduce risk of future falls. Goals Bed Mobility Goal Independent Transfer Goal Independent,Front Wheeled Walker Gait Goal Independent,Front Wheel Walker Gait Distance 200 Days to Meet Goals 1 Frequency of Treatment Frequency Of Treatment Twice a Day Treatment Plan Physical Therapy Treatment Plan Bed Mobility Training,Transfer Training,Gait Training, Therapeutic Exercise,Balance Retraining,Post Op Education, Discharge Planning,Hot or Cold Pack,Neuromuscular Re-ed, Coordination Retraining,Manual Therapy Recommendations To Nursing Amount of Assist Needed Standby Assistance Discharge Recommendations PT Discharge Recommendations Home with Assistance, Outpatient PT Transportation Needs at Discharge Private Vehicle
--- NOTE | 2019-08-07 11:43 | PC.NURSE ---
Went over dc meds and instructions with patient, questions answered. Rx for pain med given. Patient aware to call for follow up appt on Thursday. Patient taken via wc to vehicle driven by spouse, patient had all belongings.
--- NOTE | 2019-08-07 17:18 | P.DS_ITS ---
History of Present Illness History of Present Illness Chief complaint: glf/ Narrative: 69-year-old female with right hip pain and fracture. She fell approximately 3 weeks ago in her garage. Ground level fall. No prodromal shortness of breath or chest pain or dizziness. She does have a history of spinal stenosis which makes her legs somewhat weaker. She did not hit her head or lose consciousness. She had significant pain into the right groin and has been getting around with 2 canes. She had to fly to [place]. The pain was bad enough that she finally went into the emergency room [address] scan was performed which showed a nondisplaced femoral neck fracture on the right. They had recommended surgery but she had to get home to get this done and presented to the ER today when they arrived home. Pain is all in the right groin. Comfortable at rest. Sharp and stabbing with any weight-bearing or motion. She has not eaten today. She has a longstanding history of peripheral neuropathy in the feet. 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 She does have a history of atrial fibrillation and V-tach but only takes aspirin for this. She has a loop monitor implanted. Discharge Providers Provider Date of admission: 08/06/19 13:41 Discharge Date: 08/07/19 Primary care physician: Aleksey Puente MD Consults: 08/06/19 17:35 Consult to Discharge Planning Routine Comment: Consult to Physical Therapy Evaluate & Treat Comment: WBAT Physician Instructions: Evaluate and Treat Consult to Respiratory Therapy Evaluate & Treat Comment: Physician Instructions: Evaluate and treat Discharge provider: Duncan Edwards MD Summary Hospital Course Discharge Diagnosis: 1. Nondisplaced fracture of neck of right femur Procedure: Percutaneous screw fixation of right hip femoral neck fracture Surgery performed by Dr. Aleksey Landeros [facility] Course: Patient was admitted due to femoral neck fracture. She had percutaneous screw fixation the same day. The following day she was ambulating well with PT assessment and able to be discharged home. Status at Discharge Cognitive/behavioral status at discharge: oriented Functional status at discharge: independent ambulation Overall status at discharge: patient is back to baseline Time Spent with Patient Time spent: Less than 30 minutes Exam Vital Signs (past 8 hours): Oxygen Delivery Method Room Air Oxygen Flow Rate 0 Objective Labs Result Diagrams: 08/07/19 05:47 08/06/19 12:12 Labs: Laboratory Results - last 24 hr 08/06/19 08/07/19 21:42 05:47 WBC 5.9 RBC 3.53 L Hgb 11.1 L 10.5 L Hct 33.9 L 31.7 L MCV 89.8 MCH 29.7 MCHC 33.1 RDW 15.3 H Plt Count 182 Discharge Plan Discharge Plan Patient Disposition: Home Discharge comment: Follow-up 1.5 weeks with morning Discharge orders & Medications Prescriptions: New hydromorphone 2 mg Tablet 2 mg PO Q4H PRN (Reason: Pain, Severe (7-10)) Qty: 20 RF: 0 Continued celecoxib 200 mg capsule 1 cap PO BID RF: 0 omeprazole 40 mg capsule,delayed release(DR/EC) 40 mg PO DAILY RF: 0 promethazine 25 mg tablet 25 mg PO AC RF: 0 albuterol sulfate 90 mcg/actuation HFA aerosol inhaler 1 puff Inhalation PRN PRN (Reason: Shortness Of Breath) RF: 0 escitalopram oxalate 20 mg tablet 20 mg PO DAILY RF: 0 tizanidine 2 mg capsule 1 cap PO QID RF: 0 pitavastatin calcium 4 mg tablet 4 mg PO DAILY RF: 0 olmesartan 5 mg tablet 10 mg PO BID RF: 0 Follow up/Referrals: Aleksey Puente MD [Primary Care Provider] - Aleksey Landeros MD [Physician] - Discharge Health Status Multidrug resistant organism: No MDRO Diet/Activity/Treatments Diet: Diet as Tolerated Activity: WBAT with assistive device Skin/Wound/Dressing Care Report to your healthcare provider any signs of infection, such as:: chills, fever, night sweats, increased pain, unusual drainage and unusual redness Dressing: Keep dressing intact, may shower over dressing Visit Report/Discharge Packet Instructions: DI for Open Reduction Internal Fixation Surgery, DI for Prescription Opioid Use, Hydromorphone Stand Alone Forms: Surgery Discharge Discharge Data Primary Care Provider: Aleksey Puente Attending Provider: Aleksey Landeros Admit Date/Time: 08/06/19 13:41 Discharges patient from system. Discharge Date/Time: 08/07/19 11:49
== END 2019-08-07 11:49 | disposition home or self-care (01) | DRG 482 ==
LOC: ED 12:10 → AC 13:50
PROVIDERS: Admitting Provider Orthopaedic Surgery; Emergency Provider Nurse Practitioner Family; PCP Internal Medicine; Visit Provider Orthopaedic Surgery
PROC: 0QH634Z Insertion of Internal Fixation Device into Right Upper Femur, Percutaneous Approach (ICD-10-PCS; principal; 2019-08-06 13:55)
DX: S72.001A Fracture of unspecified part of neck of right femur, initial encounter for closed fracture (principal); N18.3 Chronic kidney disease, stage 3 (moderate); I12.9 Hypertensive chronic kidney disease with stage 1 through stage 4 chronic kidney disease, or unspecified chronic kidney disease; E78.5 Hyperlipidemia, unspecified; K21.9 Gastro-esophageal reflux disease without esophagitis; Z86.718 Personal history of other venous thrombosis and embolism; J45.909 Unspecified asthma, uncomplicated; W18.30XA Fall on same level, unspecified, initial encounter; Y92.008 Other place in unspecified non-institutional (private) residence as the place of occurrence of the external cause
CPT/HCPCS: 36415; 51701; 73502; 76000; 80053; 85014; 85018; 85025; 85027; 85610; 85730; 93005; 94762; 96374; 96375; 97110; 97161; 99284; G0378; J1100; J1170; J1650; J2405; J2704; J3010